=== PATIENT | male | born 1965 | race Caucasian/White ===

== ENCOUNTER 2024-06-22 21:05 | Inpatient (IN) | payer MEDICAID, SELFPAY ==
[2024-06-22 21:17] VITALS: PULSE 96; RESP 16; O2SAT 98; BMI 24.0
[2024-06-22 22:30] VITALS: BP 133/87; PULSE 88; RESP 18; TEMP 36.4; O2SAT 99
--- NOTE | 2024-06-22 22:41 | XR_ITS ---
Examination: CT abdomen with intravenous contrast CT pelvis with intravenous contrast 2-D coronal reconstructions 2-D sagittal reconstructions Date and time of exam:June 23, 2024 at 0102 hours INDICATIONS: Umbilical pain several years worse since last night. CTDI: vol (mGy) 6.80 DLP: (mGycm) 382 Technique: Multiple axial sections of the abdomen and pelvis have been obtained. 64 slice high-resolution scanner used. 3 mm axial sections have been obtained, post intravenous injection 30 cc [id number] 2-D sagittal, coronal reconstructions obtained. Low dose protocols were performed. One or more of the following dose reduction techniques were used; automated exposure control, adjustment of the mA and/or KV according to patient size, use of iterative reconstruction technique. Findings: Axial image 29 suspicious for a 14 mm thrombus in the right ventricle Axial image 24 is suspicious for 4.7 cm thrombus in the left ventricle Moderate right pleural effusion No focal liver or splenic lesions Gallstones No pancreatic mass Perinephric stranding Abdominal aortic calcification no aneurysmal dilatation No bowel obstruction No pericecal inflammatory change 14 mm fat-containing umbilical hernia No diverticulitis Urinary bladder wall thickening up to 4 mm Transverse prostate dimension 3.9 cm Moderate disc narrowing L4-L5, L5-S1 Moderate narrowing hip joints IMPRESSION: Filling defects in the right ventricle and left ventricle consistent with thrombus Moderate right pleural effusion Cholelithiasis Perinephric stranding, consider urinary tract infection Cystitis pattern
--- NOTE | 2024-06-22 22:42 | PD.EDRME ---
Rapid Medical Screening Exam [facility] Arrival date/time: 06/22/24 21:05 58M with history of HTN and drug use presents to ED with gen ab pain. Vital signs: Vital Signs Temperature 97.6 F 06/22/24 22:30 Pulse Rate 88 06/22/24 22:30 Respiratory Rate 18 06/22/24 22:30 Blood Pressure 133/87 H 06/22/24 22:30 Pulse Oximetry (%) 99 06/22/24 22:30 Oxygen Delivery Method Room Air 06/22/24 22:30
[2024-06-22 23:15] LABS: Basophils % (Auto) 0 % (0-2.5); Eosinophils % (Auto) 0 % (0-10); Hematocrit 41.8 % (41.0-53.0); Hemoglobin 13.3 g/dL (13.5-16.0); Immature Granulocytes % (Auto) 1 % (0-0); Immature Granulocytes Auto 0.06 Thou/mm3 (0.00-0.00); Lymphocytes # (Auto) 1.9 Thou/mm3 (1.0-4.8); Lymphocytes % (Auto) 15 % (10-50); Mean Corpuscular HGB Conc 31.8 g/dl (31.0-37.0); Mean Corpuscular Hemoglobin 26.9 pg (25.0-35.0); Mean Corpuscular Volume 85 fL (80-100); Monocytes # (Auto) 1.2 Thou/mm3 (0.0-0.8); Monocytes % (Auto) 9 % (0-12); Neutrophils # (Auto) 9.9 Thou/mm3 (1.8-7.7); Neutrophils % (Auto) 76 % (37-80); Nucleated Red Blood Cell # 0.02 Thou/mm3 (0.00-0.00); Nucleated Red Blood Cell % 0 /100 WBC (0); Platelet Count 265 Thou/mm3 (140-440); RDW Standard Deviation 49.1 fL (35.1-43.9); Red Blood Count 4.94 Miln/mm3 (4.50-5.90); White Blood Count 13.1 Thou/mm3 (3.8-10.6)
[2024-06-22 23:34] LABS: Alanine Aminotransferase 450 U/L (10-49); Albumin/Globulin Ratio 1.2 (1.2-2.2); Alkaline Phosphatase 213 U/L (46-116); Anion Gap 14 (7-16); Aspartate Amino Transferase 255 U/L (0-34); BUN/Creatinine Ratio 18 Ratio (12-20); Blood Urea Nitrogen 27 mg/dL (9-23); Calcium 9.8 mg/dL (8.3-10.6); Calcium (Corrected) 9.8 mg/dL (8.5-10.1); Carbon Dioxide 19.5 mMol/L (20.0-31.0); Chloride 103 mMol/L (98-107); Creatinine (Component) 1.5 mg/dL (0.6-1.3); Estimated Creatinine Clearance 54.8 mL/min (>60); Globulin 3.3 gm/dL (2.3-3.5); Glucose 179 mg/dL (74-106); Lipase 22 U/L (12-53); Osmolality,Calculated 281 (275-295); Potassium 4.4 mMol/L (3.4-5.1); Sodium 136 mMol/L (136-145); Total Protein 7.3 gm/dL (5.7-8.2); eGFR 53 See Note
[2024-06-23] VITALS (86 sets, daily range): BP systolic 20–300; BP diastolic 0–124; PULSE 0–103; RESP 0–67; TEMP 36.4–36.9; O2SAT 10–100; BMI 24.0
--- NOTE | 2024-06-23 00:03 | PC.NURSE ---
CARLOS ZAVALA NOTIFIED OF PATIENT'S PAIN LEVEL OF 4/10, NO NEW ORDERS RECIEVED.
--- NOTE | 2024-06-23 01:36 | PD.EDABDPN ---
ED Abdominal Pain RME/HPI General Chief Complaint: Abdominal Pain Stated complaint: ABDOMINAL PAIN Time seen by provider: 06/23/24 00:52 Arrival date/time: 06/22/24 21:05 RME / HPI RME / HPI narrative: 06/22/24 21:05 58M with history of HTN and drug use presents to ED with gen ab pain. ------ Dr. Wall?s Main ED Evaluation: 58yo male with a history of HTN, polysubstance abuse KEKE presents to the ED for a chief complaint of umbilical pain x years . Patient states it feels like there is a hernia shooting up to my gallbladder . He does not otherwise specify what kind of pain he has nor does he provide any other history. Denies any alcohol use. PSH includes appendectomy. Related Data Previous Rx's ?Medication ?Instructions ?Recorded aluminum-mag hydroxide-simethicone 30 ml PO Q6H PRN Indigestion 06/23/24 200 mg-200 mg-20 mg/5 mL oral susp #3,000 mL (Mag-Al Plus) atorvastatin 80 mg tablet 80 mg PO HS 30 days #30 tabs 06/23/24 pantoprazole 40 mg tablet,delayed 40 mg PO QDAY 14 days #14 tabs 06/23/24 release Allergies Allergy/AdvReac Type Severity Reaction Status Date / Time No Known Allergies Allergy Verified 12/19/20 13:16 Review of Systems Review of Systems Systems Reviewed: All systems reviewed, normal except as documented Narrative Review of Systems: Gen: No fever, no chills, no weight loss EYES: No discharge, no visual changes, no pain HEENT: No ear pain, no congestion, no sore throat PULM: No shortness of breath, no cough, no congestion CV: No chest pain, no dyspnea on exertion, no palpitations GI: No nausea, no vomiting, no diarrhea, + pain, no constipation : No frequency, no urgency, no dysuria Musc/skel: No joint pain, no back pain Skin: No rash. Warm and dry. Psyc: No hallucinations, no depression Heme/Lymph: No easy bleeding or bruising tendencies Neuro: No weakness, no headache Past Medical History Past Medical History CARDIAC: Positive Cardiac Disorders, Myocardial Infarction and Hypertension; Negative Congestive Heart Failure RESPIRATORY: Negative Chronic Obstructive Pulmonary Disease (COPD) or Asthma GENITOURINARY: Negative Renal Disease ENDOCRINE: Negative Diabetes Mellitus Type 1 or Diabetes Mellitus Type 2 HEMATOLOGIC: Negative Sickle Cell Disease Social History SMOKING STATUS: Never smoker ED Exam Narrative Physical exam: GENERAL APPEARANCE: alert and oriented x 4, well-developed, well-nourished, no acute distress VITALS: All vitals were reviewed and the pulse ox is 100% on room air, which is normal according to my interpretation. HEENT: Normocephalic, atraumatic; pupils equal, round, reactive to light; EOMI; mucous membranes pink, moist; oropharynx clear NECK: Supple LUNGS: CTABL; no wheezes, no rales, no rhonchi HEART: Regular rate, regular rhythm; normal S1, S2; no murmurs ABDOMEN: non distended; normal BS; soft, no tenderness, no RUQ tenderness on deep palpation, no guarding, no rebound; no masses, no organomegaly, no hernia BACK: no CVA tenderness EXTREMITIES: atraumatic; no edema NEUROLOGIC: awake; alert and oriented x4; cranial nerves II-XII grossly intact; no focal sensory or motor deficits PSYCHIATRIC: appropriate mood and affect SKIN: warm, dry, normal color; no rashes Course Quality Measures none Orders Category Date Time Status CT Screening NOW Care 06/22/24 22:41 Completed Insert IV NOW Care 06/22/24 22:41 Completed Miscellaneous Nursing Order NOW Care 06/23/24 01:[address] abdomen pelvis w con Stat Exams 06/22/24 22:41 Completed Alcohol, Blood Medical Stat Lab 06/23/24 01:42 Completed CBC Stat Lab 06/22/24 22:55 Completed CMP [Comprehensive Metabolic Panel] Stat Lab 06/22/24 22:55 Completed Drug Screen,Urine Stat Lab 06/23/24 04:30 Completed INR [Prothrombin Time with INR] Stat Lab 06/23/24 03:03 Completed Lipase Stat Lab 06/22/24 22:55 Completed PTT [Partial Thromboplastin Time] Stat Lab 06/23/24 03:03 Completed Urinalysis, C/S if Indicated Stat Lab 06/23/24 04:30 Completed Acetaminophen Ivpb [Ofirmev Inj] Med 06/23/24 01:44 Discontinued 1,000 mg in 100 ml IV NOW Famotidine Inj [Pepcid Inj] Med 06/23/24 01:43 Discontinued 20 mg IVP X1 ONE Heparin Inj Med 06/23/24 03:05 Discontinued 6,150 unit IV X1 ONE Ondansetron Inj [Zofran Inj] Med 06/23/24 01:44 Discontinued 4 mg IV X1 ONE Ondansetron Inj [Zofran Inj] Med 06/23/24 01:44 Discontinued 4 mg IV X1 ONE Vital Signs Vital signs: Vital Signs Temperature 97.6 F 06/22/24 22:30 Pulse Rate 88 06/22/24 22:30 Respiratory Rate 18 06/22/24 22:30 Blood Pressure 133/87 H 06/22/24 22:30 Pulse Oximetry (%) 99 06/22/24 22:30 Oxygen Delivery Method Room Air 06/22/24 22:30 Abdominal Pain MDM MDM Narrative MDM Narrative:: Scribe Attestation: 06/23/24 - Mia Nelson am scribing for and in the presence of Dr. Wall. Patient data External records reviewed:: [facility] previous records (Per chart review, patient was seen here on 11/16/22 for amphetamine abuse.) Clinical information provided by:: patient Social determinants that could affect healthcare access:: substance use (history of methamphetamine abuse) Patient has the following chronic illnesses:: HTN How is presenting disease/condition affected by chronic disease/condition?: uneffected by Evaluation data The following diagnostics were reviewed and interpreted by me:: lab results and radiology exam(s) Lab and/or radiology exams considered but not ordered:: none Interpretation Summary: WBC count is slightly elevated at 13.1, BUN is 27, Creatinine is slightly elevated at 1.5, LFTs are elevated, Lipase is normal, according to my interpretation. ---- Telerad Preliminary Report Draft Patient: LETTY ALSTON [facility]. Record#: [id number] Birthdate: 1965 Age/Sex: 58 / M Location: [facility] Attending Dr: Ordering Physician: Date of Service: Procedure(s): Accession Number(s): cc: ~ CT scan of the abdomen and pelvis with intravenous contrast (axial sections with sagittal and coronal reformats) June 23, 2024 at 0102 hours Clinical History: Generalized abdominal pain. Comparison: No prior study is available for comparison. Findings: Bibasilar dependent atelectasis is present. There is a moderate right pleural effusion. There is a small left pleural effusion. There is mild cardiomegaly. There is large thrombus in the left ventricle and small thrombi in the right ventricle. There is mild hepatomegaly. The pancreas is atrophic. There is a rim calcified gallbladder calculus, measuring 17 mm without evidence of gallbladder wall thickening or pericholecystic fluid. Perinephric fat stranding bilaterally. Scarring is noted in the kidneys bilaterally. The spleen and adrenals are unremarkable. No evidence of bowel obstruction. The appendix is not visualized; however, there is no evidence of inflammatory process in the right lower quadrant to suggest appendicitis. The urinary bladder is incompletely distended at the time of the examination and appears mildly thick-walled. There is no free fluid or free air. There are atheromatous changes with mural thrombosis of the abdominal aorta and its visceral branches. Degenerative changes are identified in the spine most marked at L4-5 producing moderate spinal canal and severe left neural foraminal narrowing. Impression: 1. Incompletely distended and mildly thick-walled urinary bladder which may represent cystitis. 2. Perinephric fat stranding bilaterally. While nonspecific, the possibility of urinary infection cannot be excluded. Recommend clinical correlation. 3. Cholelithiasis without evidence of acute cholecystitis. 4. Moderate right pleural effusion. Small left pleural effusion. 5. Large thrombus in the left ventricle and small thrombi in the right ventricle. 6. Other findings as described above. Discussion Details: Results verbally communicated to : Dr Wall at 02:37 AM 06/23/2024 Report Electronically Signed By: Félix Holloway 06/23/2024 2:48:39 AM Medications / Prescriptions Medications or Prescriptions considered but not ordered:: none Medication administrations:: Medication Administration History Discontinued Medications Acetaminophen (Acetaminophen 325 Mg Tablet) 650 mg PO Q6H PRN PRN Reason: Fever >100.4 or Pain 1-10 Stop: 07/23/24 04:50 Last Admin: 06/23/24 10:15 Dose: 650 mg Documented By: SWETHA Al Hydrox/Mg Hydrox/Simethicone (Mg Hyd/Al Hyd/Michelle (Maalox Reg) Susp 30 Ml Udc) 30 ml PO Q6H PRN PRN Reason: Indigestion Stop: 07/23/24 04:50 Last Admin: 06/23/24 10:16 Dose: 30 ml Documented By: JT Atorvastatin Calcium (Atorvastatin Calcium 20 Mg Tablet) 80 mg PO HS [facility] Stop: 07/23/24 20:59 Calcium Chloride (Calcium Chloride 10% Inj 10 Ml Syrg) Confirm Administered Dose 10 ml IV .STK-MED ONE Stop: 06/23/24 20:29 Last Admin: 06/23/24 23:35 Dose: Not Given Documented By: LEO Non-Admin Reason: Override Medication Calcium Chloride (Calcium Chloride 10% Inj 10 Ml Syrg) 10 ml IV X1 ONE Stop: 06/23/24 20:46 Last Admin: 06/23/24 20:35 Dose: 10 ml Documented By: RH Clopidogrel Bisulfate (Clopidogrel Bisulfate 75 Mg Tablet) 75 mg PO QDAY ESTEFANY Stop: 07/23/24 08:59 Dextrose (Dextrose 50%-Water Inj 50 Ml Syringe) 25 ml IV Q15MIN PRN PRN Reason: BG 50-70 responsive npo pt Stop: 07/23/24 08:39 Dextrose (Dextrose 50%-Water Inj 50 Ml Syringe) 50 ml IV Q15MIN PRN PRN Reason: BG <50 OR BG <70 & pt unresponsive Stop: 07/23/24 08:39 Last Admin: 06/23/24 20:32 Dose: 50 ml Documented By: LEO Famotidine (Famotidine Inj 10 Mg/Ml Vial 2 Ml) 20 mg IVP X1 ONE Stop: 06/23/24 01:44 Last Admin: 06/23/24 01:54 Dose: 20 mg Documented By: PRADIP Glucagon (Glucagon Inj 1 Mg Vial) 1 mg IM Q15MIN PRN PRN Reason: BG <70, and no IV access Glucagon (Glucagon Inj 1 Mg Vial) 1 mg IM Q15MIN PRN PRN Reason: BG <70, and no IV access Heparin Sodium (Porcine) (Heparin Sod Inj 5000 Unit/Ml Vial) 6,150 unit 80 unit/kg (6150 unit) IV X1 ONE; Protocol Stop: 06/23/24 03:06 Last Admin: 06/23/24 04:44 Dose: 6,150 unit Documented By: PRADIP Co-signed By: Hydromorphone HCl (Hydromorphone Inj 2 Mg/Ml Vial) 1 mg IVP Q4HR PRN PRN Reason: PAIN Stop: 06/28/24 11:40 Last Admin: 06/23/24 13:24 Dose: 1 mg Documented By: SWETHA Hydromorphone HCl (Hydromorphone Inj 2 Mg/Ml Vial) 1 mg IVP X1 ONE Stop: 06/23/24 15:58 Last Admin: 06/23/24 16:01 Dose: 1 mg Documented By: SG Hydromorphone HCl (Hydromorphone Inj 2 Mg/Ml Vial) 2 mg IVP X1 ONE Stop: 06/23/24 16:59 Last Admin: 06/23/24 17:13 Dose: 2 mg Documented By: MR Acetaminophen (Ofirmev Inj) 1,000 mg in 100 mls @ 250 mls/hr IV NOW ONE Stop: 06/23/24 02:07 Last Infusion: 06/23/24 02:17 Dose: Infused Documented By: Admin: 06/23/24 01:53 Dose: 250 mls/hr Documented By: PRADIP Heparin Sodium/Dextrose (Heparin In D5w Ivpb) 25,000 unit in 250 mls @ 13.684 mls/hr IV .[id number] [facility]; Protocol Stop: 07/07/24 04:59 Last Titration: 06/23/24 17:25 Dose: 0 units/kg/hr, 0 mls/hr Documented By: MR Co-signed By: ER Titration: 06/23/24 13:16 Dose: 15 units/kg/hr, 11.403 mls/hr Documented By: SWETHA Co-signed By: AVM Titration: 06/23/24 12:45 Dose: 0 units/kg/hr, 0 mls/hr Documented By: AddieT Co-signed By: AVM Titration: 06/23/24 11:55 Dose: 15 units/kg/hr, 11.403 mls/hr Documented By: JT Co-signed By: AVM Titration: 06/23/24 10:43 Dose: 0 units/kg/hr, 0 mls/hr Documented By: SWETHA Co-signed By: GC Admin: 06/23/24 05:20 Dose: 18 units/kg/hr, 13.684 mls/hr Documented By: PRADIP Co-signed By: KG Magnesium Sulfate (Magnesium Sulfate Ivpb) 2 gm in 50 mls @ 25 mls/hr IV X1 ONE Stop: 06/23/24 10:22 Last Admin: 06/23/24 09:04 Dose: 25 mls/hr Documented By: GM Sodium Chloride (Ns) 1,000 mls @ 999 mls/hr IV .Q1H1M ONE Stop: 06/23/24 14:54 Last Admin: 06/23/24 15:45 Dose: 999 mls/hr Documented By: AVM Piperacillin/Tazobactam/Dextrose (Zosyn) 50 mls @ 12.5 mls/hr IV Q8HR [facility] Stop: 06/30/24 21:59 Piperacillin/Tazobactam/Dextrose (Zosyn) 50 mls @ 100 mls/hr IV X1 ONE Stop: 06/23/24 14:29 Last Admin: 06/23/24 16:19 Dose: 100 mls/hr Documented By: AVM Sodium Chloride (Ns) 1,000 mls @ 999 mls/hr IV .Q1H1M ONE Stop: 06/23/24 14:58 Last Admin: 06/23/24 15:46 Dose: 999 mls/hr Documented By: AVM Sodium Bicarbonate 88.23 meq/ (Dextrose) 588.23 mls @ 100 mls/hr IV .Q5H53M [facility] Stop: 07/23/24 15:51 Last Admin: 06/23/24 17:23 Dose: Not Given Documented By: MR Non-Admin Reason: Discontinued Sodium Bicarbonate 150 meq/ (Dextrose) 1,150 mls @ 100 mls/hr IV .[id number] [facility] Stop: 07/23/24 15:59 Last Admin: 06/23/24 17:23 Dose: Not Given Documented By: MR Non-Admin Reason: Discontinued Vancomycin HCl (Vancomycin/Water 1250 Mg Ivpb) 250 mls @ 120 mls/hr IV QDAY@1400 [facility] Stop: 06/30/24 16:14 Last Infusion: 06/23/24 20:10 Dose: Infused Documented By: Admin: 06/23/24 18:01 Dose: 120 mls/hr Documented By: MR Vasopressin/Sodium Chloride (Vasostrict/Ns Ivpb) Confirm Administered Dose 20 unit in 100 mls @ ud IV .STK-MED ONE Stop: 06/23/24 19:25 Last Admin: 06/23/24 20:24 Dose: Not Given Documented By: CMN Non-Admin Reason: Override Medication Vasopressin/Sodium Chloride (Vasostrict/Ns Ivpb) 20 unit in 100 mls @ 9 mls/hr IV .Q11H7M PRN; Protocol PRN Reason: PER PROTOCOL Stop: 07/23/24 19:38 Last Titration: 06/23/24 21:03 Dose: 0 unit/min, 0 mls/hr Documented By: Admin: 06/23/24 19:24 Dose: 0.03 unit/min, 9 mls/hr Documented By: CMN Lactated Ringer's (Lactated Ringers) 500 mls @ 999 mls/hr IV .Q31M ONE Stop: 06/23/24 20:10 Last Admin: 06/23/24 19:40 Dose: 999 mls/hr Documented By: CMDemetri Albumin Human (Albuminar-25 Ivpb) 25 gm in 100 mls @ 100 mls/hr IV QDAY ESTEFANY Stop: 06/26/24 19:46 Last Infusion: 06/23/24 20:34 Dose: 0 mls/hr Documented By: Admin: 06/23/24 19:40 Dose: 100 mls/hr Documented By: SUZIE Albumin Human (Albuminar-25 Ivpb) Confirm Administered Dose 25 gm in 100 mls @ ud IV .STK-MED ONE Stop: 06/23/24 19:41 Last Admin: 06/23/24 20:24 Dose: Not Given Documented By: CMDemetri Non-Admin Reason: Override Medication Norepinephrine/Dextrose (Levophed In D5w 8mg/250ml) Confirm Administered Dose 8 mg in 250 mls @ ud IV .STK-MED ONE Stop: 06/23/24 20:11 Last Admin: 06/24/24 01:46 Dose: Not Given Documented By: RH Non-Admin Reason: Override Medication Norepinephrine/Dextrose (Levophed In D5w 8mg/250ml) 8 mg in 250 mls @ 7.127 mls/hr IV .Q24H PRN; Protocol PRN Reason: PER PROTOCOL Stop: 07/23/24 20:20 Last Titration: 06/23/24 21:03 Dose: 0 mcg/kg/min, 0 mls/hr Documented By: Titration: 06/23/24 21:00 Dose: 3 mcg/kg/min, 427.624 mls/hr Documented By: Titration: 06/23/24 20:38 Dose: 3 mcg/kg/min, 427.624 mls/hr Documented By: Titration: 06/23/24 20:34 Dose: 2 mcg/kg/min, 285.083 mls/hr Documented By: Titration: 06/23/24 20:32 Dose: 1.5 mcg/kg/min, 213.812 mls/hr Documented By: Titration: 06/23/24 20:27 Dose: 1 mcg/kg/min, 142.541 mls/hr Documented By: Titration: 06/23/24 20:25 Dose: 0.5 mcg/kg/min, 71.271 mls/hr Documented By: Titration: 06/23/24 20:22 Dose: 0.2 mcg/kg/min, 28.508 mls/hr Documented By: Titration: 06/23/24 20:20 Dose: 0.1 mcg/kg/min, 14.254 mls/hr Documented By: Admin: 06/23/24 20:19 Dose: 0.05 mcg/kg/min, 7.127 mls/hr Documented By: RH Calcium Chloride 10 ml/ Sodium (Chloride) 110 mls @ 110 mls/hr IV X1 ONE Stop: 06/23/24 20:36 Insulin Human Lispro (Insulin Lispro (Admelog) 1 Unit/0.01 Ml Unit) 0 unit SC AC ESTEFANY; Protocol Stop: 07/23/24 11:29 Last Admin: 06/23/24 12:00 Dose: Not Given Documented By: JT Non-Admin Reason: Per protocol. Pt NPO Insulin Human Lispro (Insulin Lispro (Admelog) 1 Unit/0.01 Ml Unit) 0 unit SC AC ESTEFANY; Protocol Stop: 07/23/24 11:29 Insulin Human Lispro (Insulin Lispro (Admelog) 1 Unit/0.01 Ml Unit) 0 unit SC Q6HR ESTEFANY; Protocol Stop: 07/24/24 00:00 Morphine Sulfate (Morphine Sulf Inj 10 Mg/Ml Vial) 2 mg IVP X1 ONE Stop: 06/23/24 11:35 Last Admin: 06/23/24 11:43 Dose: 2 mg Documented By: JT Ondansetron HCl (Ondansetron Inj 2 Mg/Ml Inj 2 Ml) 4 mg IV X1 ONE; Protocol Stop: 06/23/24 01:45 Last Admin: 06/23/24 01:48 Dose: Not Given Documented By: PRADIP Non-Admin Reason: Duplicate Medication on eMAR Ondansetron HCl (Ondansetron Inj 2 Mg/Ml Inj 2 Ml) 4 mg IV X1 ONE; Protocol Stop: 06/23/24 01:45 Last Admin: 06/23/24 01:54 Dose: 4 mg Documented By: PRADIP Ondansetron HCl (Ondansetron Inj 2 Mg/Ml Inj 2 Ml) 4 mg IV Q6H PRN; Protocol PRN Reason: NAUSEA OR VOMITING Stop: 07/23/24 04:50 Pantoprazole Sodium (Pantoprazole 40 Mg Tablet) 40 mg PO QDAY ESTEFANY Stop: 07/23/24 08:59 Last Admin: 06/23/24 09:04 Dose: 40 mg Documented By: DEB Pharmacy Consult (Vancomycin Pharmacy To Dose 1 Each Each) 1 each IV QDAY PRN PRN Reason: PROTOCOL Stop: 07/24/24 08:59 Protamine Sulfate (Protamine Sulfate 10 Mg/Ml 5ml Vial) 30 mg IV X1 ONE Stop: 06/23/24 17:38 Last Admin: 06/23/24 18:01 Dose: 30 mg Documented By: Sodium Bicarbonate (Sodium Bicarb Inj 8.4% 1 Meq/Ml Vial 50 Ml) 50 meq IV X1 ONE Stop: 06/23/24 15:38 Last Admin: 06/23/24 15:51 Dose: 50 meq Documented By: TREE Sodium Bicarbonate (Sodium Bicarb Inj 8.4% 1 Meq/Ml Vial 50 Ml) 50 meq IV X1 ONE Stop: 06/23/24 16:06 Last Admin: 06/23/24 17:14 Dose: Not Given Documented By: Non-Admin Reason: dc per MD GANDHI Sodium Bicarbonate (Sodium Bicarb Inj 8.4% Syr 50 Ml Syringe) 50 ml IV X1 ONE Stop: 06/23/24 20:25 Last Admin: 06/23/24 20:24 Dose: 50 ml Documented By: LEO Sodium Bicarbonate (Sodium Bicarb Inj 8.4% Syr 50 Ml Syringe) Confirm Administered Dose 50 ml IV .STK-MED ONE Stop: 06/23/24 20:17 Last Admin: 06/23/24 20:34 Dose: Not Given Documented By: LEO Non-Admin Reason: Override Medication Sodium Bicarbonate (Sodium Bicarb Inj 8.4% Syr 50 Ml Syringe) Confirm Administered Dose 100 ml IV .[employer] ONE Stop: 06/23/24 20:47 Last Admin: 06/24/24 01:47 Dose: Not Given Documented By: LEO Non-Admin Reason: Code Blue see above Consultations Consultation(s) initiated? (list below): Yes Consultation #1 (Physician, Specialty, Details): Discussed case with [Dr. Dinh, attending Dr. Black] from Hospitalist service regarding admission. Discussed patients ED course, exam findings, labs, and radiology results. The Hospitalist [agrees] to accept the patient for admission. Time: 03:04 Diagnosis Differential diagnosis abdominal pain: acute appendicitis, pancreatitis, small bowel obstruction and other (incarcerated ventral hernia, nonincarcerated ventral hernia, periumbilical hernia) Most likely diagnosis given after review of the tests above:: see below Admission Indicated Admission indicated?: indicated Admission Request Was there a request for admission?: Yes Admission Attestation Admission request attestation: Discussed case with [] from Hospitalist service regarding admission. Discussed patients ED course, exam findings, labs, and radiology results. The Hospitalist [agrees,declines] to accept the patient for admission. Disposition Plan Disposition Plan: Admit Discharge Plan Plan Patient Disposition: Admit Acute Care w/in Hospital Problem List Clinical Impression: Left ventricular thrombus
[2024-06-23] MEDS: ACETAMINOPHEN IVPB 1,000 MG/100 ML VIAL 250 MG IV (01:53)
[2024-06-23] MEDS: FAMOTIDINE INJ 10 MG/ML VIAL 2 ML 20 MG IVP (01:54)
[2024-06-23] MEDS: ONDANSETRON INJ 2 MG/ML INJ 2 ML 4 MG IV (01:54)
[2024-06-23 02:03] LABS: Alcohol, Blood Medical < 3.0 mg/dL (0-10.0)
--- NOTE | 2024-06-23 02:49 | PRELIM_ITS ---
CT scan of the abdomen and pelvis with intravenous contrast (axial sections with sagittal and coronal reformats) June 23, 2024 at 0102 hours Clinical History: Generalized abdominal pain. Comparison: No prior study is available for comparison. Findings: Bibasilar dependent atelectasis is present. There is a moderate right pleural effusion. There is a small left pleural effusion. There is mild cardiomegaly. There is large thrombus in the left ventricle and small thrombi in the right ventricle. There is mild hepatomegaly. The pancreas is atrophic. There is a rim calcified gallbladder calculus, measuring 17 mm without evidence of gallbladder wall thickening or pericholecystic fluid. Perinephric fat stranding bilaterally. Scarring is noted in the kidneys bilaterally. The spleen and adrenals are unremarkable. No evidence of bowel obstruction. The appendix is not visualized; however, there is no evidence of inflammatory process in the right lower quadrant to suggest appendicitis. The urinary bladder is incompletely distended at the time of the examination and appears mildly thick-walled. There is no free fluid or free air. There are atheromatous changes with mural thrombosis of the abdominal aorta and its visceral branches. Degenerative changes are identified in the spine most marked at L4-5 producing moderate spinal canal and severe left neural foraminal narrowing. Impression: 1. Incompletely distended and mildly thick-walled urinary bladder which may represent cystitis. 2. Perinephric fat stranding bilaterally. While nonspecific, the possibility of urinary infection cannot be excluded. Recommend clinical correlation. 3. Cholelithiasis without evidence of acute cholecystitis. 4. Moderate right pleural effusion. Small left pleural effusion. 5. Large thrombus in the left ventricle and small thrombi in the right ventricle. 6. Other findings as described above. Discussion Details: Results verbally communicated to : Dr Wall at 02:37 AM 06/23/2024 Report Electronically Signed By: Félix Holloway 06/23/2024 2:48:39 AM [EST]
[2024-06-23 03:22] LABS: INR 1.4 (0.9-1.3); Partial Thromboplastin Time 25.9 Seconds (22.0-36.0); Prothrombin Time 15.2 Seconds (9.0-12.2)
[2024-06-23] MEDS: HEPARIN SOD INJ 5000 UNIT/ML VIAL 6150 UNIT IV (04:44)
[2024-06-23 04:47] LABS: Collection Type, Urine Clean Catch
--- NOTE | 2024-06-23 04:51 | ECHO_ITS ---
Transthoracic Echo Report Ht (in): 70 Wt (lb): 167 Exam Location: Echo Lab Status: Inpatient Excavating Contractor: Shanel Nguyen Indications: Procedure Performed: BP: 133 / 87 HR: 88 Technical Quality: Very technically difficult study MEASUREMENTS (Male / Female) Normal Values 2D ECHO LV Diastolic Diameter PLAX 5.7 cm 4.2 - 5.9 / 3.9 - 5.3 cm LV Systolic Diameter PLAX 4.8 cm IVS Diastolic Thickness 0.8 cm 0.6 - 1.0 / 0.6 - 0.9 cm LVPW Diastolic Thickness 0.9 cm 0.6 - 1.0 / 0.6 - 0.9 cm LV Relative Wall Thickness 0.3 LVOT Diameter 1.9 cm LA Volume Index 22.3 cm?/m? 16 - 28 cm?/m? M-MODE Aortic Root Diameter MM 2.9 cm LA Systolic Diameter MM 3.9 cm LA Ao Ratio MM 1.3 AV Cusp Separation MM 1.9 cm DOPPLER AV Peak Velocity 94.7 cm/s AV Peak Gradient 3.6 mmHg AV Mean Gradient 2.0 mmHg AV Velocity Time Integral 12.9 cm LVOT Peak Velocity 69.5 cm/s LVOT Peak Gradient 1.9 mmHg LVOT Velocity Time Integral 9.3 cm LVOT Cardiac Index 1196.7 cm?/min?m? AV Area Cont Eq vti 2.0 cm? AV Area Cont Eq pk 2.1 cm? MV Area PHT 4.4 cm? MR Peak Velocity 324.5 cm/s MR Peak Gradient 42.1 mmHg Mitral E Point Velocity 84.4 cm/s LV E' Lateral Velocity 11.8 cm/s Mitral E to LV E' Lateral Ratio 7.2 LV E' Septal Velocity 6.0 cm/s Mitral E to LV E' Septal Ratio 14.1 TR Peak Velocity 343.0 cm/s TR Peak Gradient 47.1 mmHg PV Peak Velocity 92.3 cm/s PV Peak Gradient 3.4 mmHg FINDINGS Left Ventricle Normal left ventricular size and wall thickness. Global left ventricular systolic function is severely decreased. The ejection fraction is visually estimated at 20-25%. Horizontal hyperechoic solid thrombosis in the LV apical cap. Right Ventricle The right ventricle is normal in size and systolic function. The estimated right ventricular systolic pressure, 62 mmHg. RAP 15. Left Atrium The left atrium is normal by two-dimensional, color flow and Doppler imaging with no structural abnormalities, no thrombus formation present. Right Atrium The right atrium is normal by two-dimensional imaging, color flow and Doppler imaging with no structural abnormalities, no thrombus formation present. Atrial Septum The interatrial septum appears normal with no evidence of a shunt. Aorta The aorta is normal by two-dimensional, color flow and Doppler interrogation. Mitral Valve The mitral valve is normal by two-dimensional, color flow and Doppler interrogation. There is moderated mitral valve regurgitation, stenosis or prolapse. Aortic Valve The aortic valve is trileaflet and normal by two-dimensional, color flow and Doppler interrogation. There is no significant aortic valve regurgitation. Tricuspid Valve The tricuspid valve is normal by two-dimensional, color flow and Doppler interrogation. There is moderate tricuspid valve regurgitation. Pulmonic Valve The pulmonic valve is not well visualized. There is no significant pulmonic valve regurgitation. Vessels The pulmonary artery appears normal. The inferior vena cava pulmonary and hepatic veins appear normal. Pericardium The pericardium is normal by two-dimensional imaging. There is no significant pericardial effusion. CONCLUSIONS Indication: LV thrombus Normal LV size and wall thickness. Global LV systolic function is severely decreased. Estimated EF 20-25%. Horizontal hyperechoic solid thrombosis in the LV apical cap. RV is normal in size and systolic function. The estimated RV systolic pressure, 62 mmHg. RAP 15. Moderate MR and TR. Tara Mackey (Electronically Signed) Final Date: 24 June 2024 00:36
--- NOTE | 2024-06-23 04:59 | XR_ITS ---
Examination: Abdomen sonogram, Limited Date and time of exam: June 23, 2024 at 0724 hours INDICATIONS: Elevated liver function tests on laboratory examination June 23, 2024 Technique: Real-time fragoso scale transabdominal sonographic images of the upper abdomen obtained. Findings: 21 mm stone in the gallbladder neck Gallbladder wall 0.2 cm no edema Common bile duct 0.3 cm Pancreatic head 2.6 cm Liver 16.6 cm smooth contour no focal liver lesions Mild right pleural fluid Normal hepatopedal portal venous flow Patent IVC IMPRESSION: Cholelithiasis, negative for cholecystitis Normal common bile duct No focal liver lesions
--- NOTE | 2024-06-23 05:00 | ESHP_ITS ---
<Statement entered by Angel Black MD - 06/23/24 13:54> I have discussed and was present for the essential components of the history, physical examination, diagnosis, and treatment plan with the resident. I agree with the patient's care as documented by the resident and amended herein by me. Angel Black MD FACP. Documentation for date of: 06/23/24 HPI History of Present Illness Chief complaint: Periumbilical pain x 3 years, worse today History of present illness: Patient is a 58-year-old male with past medical history of polysubstance abuse with meth and marijuana, CAD, PA s/p stents, and HTN who presented to the ED on 06/22/2024 with episodes of periumbilical pain for 3 years, however episodes got severe enough today he presented to ED. Patient reports the pain as being periumbilical, central, without radiation, feels like there is a hernia. Episodes last about 15-30 minutes and he gets about 2-5 episodes per day. Patient reports that it has caused him to become nauseated and lose appetite. Patient endorses some intermittent chronic diarrhea. Patient states that he has history of PA, s/p stents and is supposed to be on medication but has stopped taking all medications on his own due to feeling like they weren't helping him. Patient reports stents were done by Dr. Shelley in [place] but patient has not followed up with Cardiology for some time. ED Course: -Initial vitals were BP 133/87, HR 88, RR 18, Temp 98.4, O2 99% on room air -Labs significant for WBC 13.1, creatinine 1.5, AST 255, ALT 450, alk phos 213 -Abdomen/pelvis CT with contrast had shown distended urinary bladder, perinephric fat stranding, cholelithiasis without cholecystitis, moderate right pleural effusion, small left pleural effusion, and a large thrombus in the left ventricle with small thrombi in the right ventricle. -In the ED, patient was given Zofran 4 mg IV x1, acetaminophen 1 g IV x1, famotidine 20 mg IV x1 -Patient was admitted for further management of the left ventricle thrombus Review of Systems Review of systems otherwise negative except what is mentioned above. Past Medical History Past Medical History Comments PMH COMMENT: Past Medical History: Polysubstance abuse with meth and marijuana, CAD, PA s/p stents, and HTN Family History: Notable for cardiac disorders and diabetes Surgical History: Cardiac stents Social History: Current every day smoker about 1 pack per day, about 50 pack- year history, denies current alcohol use, endorses occasional drug use including smoked meth and marijuana. Patient states he lives in a house with his girlfriend. Current Medications: Patient currently does not recall medications but states he is supposed to be on heart medications, had poor compliance Allergies: No known drug allergies Exam Vital Signs Temp Pulse Resp BP Pulse Ox O2 Del Method 97.6 F 87 18 110/76 97 Room Air 06/22/24 22:30 06/23/24 04:47 06/23/24 04:31 06/23/24 04:31 06/23/24 04:31 06/23/24 04:31 Narrative Exam Physical Exam General: Awake and in no acute distress. Conversational. HEENT: Normocephalic, atraumatic, mucous membranes moist. Heart: Regular rate and rhythm, no murmurs. Lungs: Wheezing in bilateral lower lung ahn. Abdomen: Soft, nondistended, nontender, positive bowel sounds. ?No guarding or rebound tenderness. Negative Polanco's sign. Neurologic: Alert and oriented x3, no gross neurological deficit, and patient able to move all 4 extremities. Extremities: No edema. Skin: No rash or ecchymoses. Results: Labs 06/23/24 06:06 06/23/24 06:06 Labs: Short CBC 06/22/24 Range/Units 22:55 WBC 13.1 H (3.8-10.6) Thou/mm3 Hgb 13.3 L (13.5-16.0) g/dL Hct 41.8 (41.0-53.0) % Plt Count 265 (140-440) Thou/mm3 BMP 06/22/24 22:55 Sodium 136 Potassium 4.4 Chloride 103 Carbon Dioxide 19.5 L BUN 27 H Creatinine 1.5 H Glucose 179 H Calcium 9.8 Liver Function 06/22/24 Range/Units 22:55 Total Bilirubin 1.0 (0.3-1.2) mg/dL AST 255 H (0-34) U/L ALT 450 H (10-49) U/L Alkaline Phosphatase 213 H (46-116) U/L Albumin 4.0 (3.5-5.0) gm/dL Quality Measures Quality Measures none Medications Home Medications and Allergies Allergies Allergy/AdvReac Type Severity Reaction Status Date / Time No Known Allergies Allergy Verified 12/19/20 13:16 Visit Medications Acetaminophen (Acetaminophen 325 Mg Tablet) 650 mg PO Q6H PRN PRN Reason: Fever >100.4 or Pain 1-10 Stop: 07/23/24 04:50 Al Hydrox/Mg Hydrox/Simethicone (Mg Hyd/Al Hyd/Michelle (Maalox Reg) Susp 30 Ml Udc) 30 ml PO Q6H PRN PRN Reason: Indigestion Stop: 07/23/24 04:50 Atorvastatin Calcium (Atorvastatin Calcium 20 Mg Tablet) 80 mg PO HS ESTEFANY Stop: 07/23/24 20:59 Clopidogrel Bisulfate (Clopidogrel Bisulfate 75 Mg Tablet) 75 mg PO QDAY ESTEFANY Stop: 07/23/24 08:59 Heparin Sodium/Dextrose (Heparin In D5w Ivpb) 25,000 unit in 250 mls @ 13.684 mls/hr IV .[id number] ESTEFANY; Protocol Stop: 07/07/24 04:59 Ondansetron HCl (Ondansetron Inj 2 Mg/Ml Inj 2 Ml) 4 mg IV Q6H PRN; Protocol PRN Reason: NAUSEA OR VOMITING Stop: 07/23/24 04:50 Pantoprazole Sodium (Pantoprazole 40 Mg Tablet) 40 mg PO QDAY [facility] Stop: 07/23/24 08:59 Discontinued Medications Famotidine (Famotidine Inj 10 Mg/Ml Vial 2 Ml) 20 mg IVP X1 ONE Stop: 06/23/24 01:44 Last Admin: 06/23/24 01:54 Dose: 20 mg Heparin Sodium (Porcine) (Heparin Sod Inj 5000 Unit/Ml Vial) 6,150 unit 80 unit/kg (6150 unit) IV X1 ONE; Protocol Stop: 06/23/24 03:06 Last Admin: 06/23/24 04:44 Dose: 6,150 unit Acetaminophen (Ofirmev Inj) 1,000 mg in 100 mls @ 250 mls/hr IV NOW ONE Stop: 06/23/24 02:07 Last Infusion: 06/23/24 02:17 Dose: Infused Ondansetron HCl (Ondansetron Inj 2 Mg/Ml Inj 2 Ml) 4 mg IV X1 ONE; Protocol Stop: 06/23/24 01:45 Last Admin: 06/23/24 01:48 Dose: Not Given Ondansetron HCl (Ondansetron Inj 2 Mg/Ml Inj 2 Ml) 4 mg IV X1 ONE; Protocol Stop: 06/23/24 01:45 Last Admin: 06/23/24 01:54 Dose: 4 mg Assessment & Plan Plan 58-year-old male with past medical history of polysubstance abuse with meth and marijuana, CAD, PA s/p stents, and HTN who presented to the ED on 06/22/2024 with episodes of periumbilical pain for 3 years with worsening episodes prompting ED visit, found to have left ventricle thrombus on imaging and admitted for further management. #Large left ventricle thrombus #Multiple small right ventricle thrombi Patient initially presented with acute on chronic abdominal pain, found to have left ventricle thrombus on the CT abdo/pelvis with contrast. -Given heparin bolus in ED -Started on heparin drip -Echo ordered -Cardiology Dr. Anderson consulted -Troponin ordered #Periumbilical abdominal pain Unknown etiology at this time, patient presents with acute on chronic symptoms x years. Differentials may include mesenteric ischemia given the history of CAD, thrombus present, CT abd/pelv with contrast thus far did not show particular occlusions. Other etiologies include IBD, IBS, colitis, cholelithiasis, choledocholithiasis. Patient is not septic, CT abd/pelv with con did not find any acute pathology. -Protonix daily -Maalox for symptomatic relief -Outpatient GI follow up #Elevated AST and ALT Patient denies alcohol use. Does endorse meth use. -Ordered liver US -Hepatitis panel #Polysubstance abuse with meth and marijuana #Tobacco use disorder Patient endorses smoking meth, history of marijuana use. -Counseled on cessation of substance use #History of CAD and PA s/p stents #History of HTN -Restart prior medications pending med rec DVT prophylaxis: Heparin drip GI prophylaxis: Pantoprazole 40 mg PO daily Diet: Cardiac Up: None Lines: Peripheral IV Antibiotics: None CODE STATUS: FULL Reason for hospitalization: Left ventricle thrombus Patient plan of care was discussed with the attending physician, Dr. Black. Debora Dinh, PGY-2
[2024-06-23 05:04] LABS: Amphetamine/Methamp Scrn,U Positive (Negative); Barbiturate Screen,Urine Negative (Negative); Benzodiazepines Screen,Urine Negative (Negative); Benzoylecgonine Screen, Ur Negative (Negative); Fentanyl Screen,Urine Negative (Negative); Opiate Screen,Urine Negative (Negative); THC Screen,Urine Negative (Negative)
[2024-06-23 05:05] LABS: Bilirubin,Urine Negative (Negative); Blood,Urine Negative (Negative); Clarity,Urine Clear (Clear/Hazy); Color,Urine Yellow (Lt Yel-Yel); Culture Indicated,Urine Not Indicated; Glucose, Urine Negative (Negative); Ketones,Urine Negative (Negative); Leukocyte Esterase,Urine Negative (Negative); Nitrite,Urine Negative (Negative); Protein,Urine 1+ (Neg - Trace); RBC,Urine 4 /hpf (0-3); Squamous Epithelial Cell,Urine < 1 /hpf (0-5); WBC,Urine 1 /hpf (0-5)
[2024-06-23 05:08] LABS: Specific Gravity,Urine 1.025 (1.001-1.035)
[2024-06-23] MEDS: Heparin/D5w 25K 250 ML Ivpb 25,000 UNIT/250 ML BAG 13.684 UNIT IV (05:20)
[2024-06-23 06:28] LABS: Basophils # (Auto) 0.1 Thou/mm3 (0.0-0.2); Basophils % (Auto) 1 % (0-2.5); Eosinophils % (Auto) 0 % (0-10); Hematocrit 38.4 % (41.0-53.0); Hemoglobin 12.7 g/dL (13.5-16.0); Immature Granulocytes % (Auto) 0 % (0-0); Immature Granulocytes Auto 0.04 Thou/mm3 (0.00-0.00); Lymphocytes # (Auto) 3.5 Thou/mm3 (1.0-4.8); Lymphocytes % (Auto) 26 % (10-50); Mean Corpuscular HGB Conc 33.1 g/dl (31.0-37.0); Mean Corpuscular Hemoglobin 27.4 pg (25.0-35.0); Mean Corpuscular Volume 83 fL (80-100); Monocytes # (Auto) 1.2 Thou/mm3 (0.0-0.8); Monocytes % (Auto) 9 % (0-12); Neutrophils # (Auto) 8.3 Thou/mm3 (1.8-7.7); Neutrophils % (Auto) 63 % (37-80); Nucleated Red Blood Cell % 0 /100 WBC (0); Platelet Count 231 Thou/mm3 (140-440); RDW Standard Deviation 48.3 fL (35.1-43.9); Red Blood Count 4.64 Miln/mm3 (4.50-5.90); White Blood Count 13.1 Thou/mm3 (3.8-10.6)
[2024-06-23 06:49] LABS: Glucose Estimated Average 137 mg/dL (80-131); Hemoglobin A1C 6.4 % Hgb (4.8-6.0)
[2024-06-23 06:57] LABS: Alanine Aminotransferase 376 U/L (10-49); Albumin, Serum 3.6 gm/dL (3.5-5.0); Albumin/Globulin Ratio 1.2 (1.2-2.2); Alkaline Phosphatase 183 U/L (46-116); Anion Gap 12 (7-16); Aspartate Amino Transferase 173 U/L (0-34); BUN/Creatinine Ratio 19 Ratio (12-20); Bilirubin,Total 0.9 mg/dL (0.3-1.2); Blood Urea Nitrogen 26 mg/dL (9-23); Calcium 9.4 mg/dL (8.3-10.6); Calcium (Corrected) 9.7 mg/dL (8.5-10.1); Carbon Dioxide 19.3 mMol/L (20.0-31.0); Cardiac Risk Estimate 5.1 RATIO (4.0-6.7); Chloride 105 mMol/L (98-107); Cholesterol 142 mg/dL (132-200); Creatinine (Component) 1.4 mg/dL (0.6-1.3); Estimated Creatinine Clearance 58.7 mL/min (>60); Globulin 2.9 gm/dL (2.3-3.5); Glucose 115 mg/dL (74-106); HDL Cholesterol 28 mg/dL (40-60); LDL Cholesterol,Calculated 100 mg/dL (0-130); Magnesium 1.9 mg/dL (1.6-2.6); Osmolality,Calculated 277 (275-295); Phosphorous 5.1 mg/dL (2.4-5.1); Potassium 4.4 mMol/L (3.4-5.1); Sodium 136 mMol/L (136-145); Thyroid Stimulating Hormone 0.81 uIU/mL (0.55-4.78); Total Protein 6.5 gm/dL (5.7-8.2); Triglycerides 69 mg/dL (30-150); eGFR 58 See Note
[2024-06-23 07:07] LABS: Troponin I 1.269 ng/mL (0.0-0.045)
[2024-06-23 08:11] LABS: Hepatitis A Antibody IgM Non Reactive (Non React); Hepatitis B Core Antibody IgM Non Reactive (Non React); Hepatitis B Surface Antigen Non Reactive (Non React); Hepatitis C Antibody Non Reactive (Non React)
--- NOTE | 2024-06-23 08:29 | EKG_ITS ---
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 STUDENT : 1965 Requested By: Josselyn Maier Order Number: [id number] Reading MD: Josselyn Maier Measurements Intervals [place] Rate: 95 P: 63 WA: 145 QRS: -76 QRSD: 84 T: 89 QT: 326 QTc: 412 Interpretive Statements SINUS RHYTHM POSSIBLE LEFT ATRIAL ENLARGEMENT [-0.1mV P WAVE IN V1/V2] MARKED LEFT AXIS DEVIATION [QRS AXIS < -30] ANTEROSEPTAL MYOCARDIAL INFARCTION , OF INDETERMINATE AGE [40+ ms Q WAVE IN V1-V4] Compared to ECG 07/15/2021 00:47:04 Left-axis deviation now present Myocardial infarct finding now present Sinus tachycardia no longer present /store/S0/[id number]/[id number].pdf
[2024-06-23] MEDS: Magnesium Sulfate 2 GM Ivpb 2 GM/50 ML BAG IV (09:04)
[2024-06-23] MEDS: PANTOPRAZOLE 40 MG TABLET PO (09:04)
[2024-06-23 09:22] LABS: Partial Thromboplastin Time > 139.0 Seconds (22.0-36.0)
[2024-06-23 09:32] LABS: HIV (1&2) Antibody Rapid Non-Reactive
[2024-06-23] MEDS: ACETAMINOPHEN 325 MG TABLET 650 MG PO (10:15)
[2024-06-23] MEDS: MG HYD/AL HYD/SIME (Maalox Reg) SUSP 30 ML UDC PO (10:16)
--- NOTE | 2024-06-23 11:16 | PC.CC ---
Pt Slick Odonnell is a 58 yr old male admitted to hospitalist services for left ventricle thrombus and multiple small right thrombi. ASW met with pt at bedside to complete initial assessment. At time of encounter pt is noted to be alert and oriented to person, place and situation. Pt expressed understanding admission order. Pt able to confirm demographic information. Pt is from [address] Per pt he lives in the home with his life partner Meredith Pablo [phone]. At baseline pt reports being independent with ambulation. Pt reports he needs assist with completing his ADLs. Pt states he does not use supplemental O2 in the home, but states that he needs O2. Pt is not on O2 in the ED. Pt reports he is not diabetic and is not on dialysis. Pt is followed by [facility]. Pt states that at time of D/c he will return home, with his life partner providing transport.
--- NOTE | 2024-06-23 11:40 | XR_ITS ---
Examination: CTA abdomen, with intravenous contrast. CTA pelvis, with intravenous contrast. 2-D sagittal and coronal reconstructions. 3-D reconstructions. Date and time of exam: June 23, 2024 1306 hours INDICATIONS: Abdominal pain and distention this week, clinical diagnosis mesenteric ischemia CTDI vol (mgy) 34.6 DLP (MGycm) 505 Technique: Multiple CTA images, 2.0 mm slice thickness, obtained abdomen, pelvis, with the high-resolution 64 slice scanner. 80 cc Isovue-300 is administered intravenously. Sagittal and coronal 2-D reconstructions are obtained. 3-D reconstructions, angiographic images are obtained. 3-D postprocessing, including vascular maximum intensity projections. Low dose protocols were performed. One or more of the following dose reduction techniques were used; automated exposure control, adjustment of the mA and/or KV according to patient size, use of iterative reconstruction technique. Findings: Mild to moderate right pleural fluid Minimal left pleural fluid Hepatomegaly 21 cm No focal liver lesions Cholelithiasis Spleen is not enlarged No pancreatic mass Perinephric stranding with mild renal parenchymal scar formation No abdominal aortic aneurysmal dilatation No edema surrounding small bowel loops No obstruction No free air Urinary bladder intact IMPRESSION: No bowel obstruction No findings diagnostic for ischemic bowel
[2024-06-23] MEDS: MORPHINE SULF INJ 10 MG/ML VIAL 2 MG IVP (11:43)
[2024-06-23 12:19] LABS: Lactate (Lactic Acid) 13.2 mMol/L (0.4-2.0)
[2024-06-23 12:42] LABS: Lipase 25 U/L (12-53)
[2024-06-23 12:51] LABS: Troponin I 1.249 ng/mL (0.0-0.045)
[2024-06-23] MEDS: HYDROmorphone INJ 2 MG/ML VIAL 1 MG IVP ×2 (13:24→16:01)
[2024-06-23 14:52] LABS: Basophils % (Auto) 0 % (0-2.5); Eosinophils % (Auto) 0 % (0-10); Hematocrit 48.1 % (41.0-53.0); Hemoglobin 14.8 g/dL (13.5-16.0); Immature Granulocytes % (Auto) 1 % (0-0); Immature Granulocytes Auto 0.11 Thou/mm3 (0.00-0.00); Lymphocytes # (Auto) 1.2 Thou/mm3 (1.0-4.8); Lymphocytes % (Auto) 7 % (10-50); Mean Corpuscular HGB Conc 30.8 g/dl (31.0-37.0); Mean Corpuscular Hemoglobin 27.2 pg (25.0-35.0); Mean Corpuscular Volume 88 fL (80-100); Monocytes # (Auto) 1.3 Thou/mm3 (0.0-0.8); Monocytes % (Auto) 8 % (0-12); Neutrophils # (Auto) 14.5 Thou/mm3 (1.8-7.7); Neutrophils % (Auto) 85 % (37-80); Nucleated Red Blood Cell # 0.03 Thou/mm3 (0.00-0.00); Nucleated Red Blood Cell % 0 /100 WBC (0); Platelet Count 271 Thou/mm3 (140-440); RDW Standard Deviation 53.4 fL (35.1-43.9); Red Blood Count 5.45 Miln/mm3 (4.50-5.90); White Blood Count 17.1 Thou/mm3 (3.8-10.6)
--- NOTE | 2024-06-23 15:10 | PD.RESPRO ---
Documentation for date of: 06/23/24 Subjective Subjective Interval history: Patient admitted overnight. No overnight events reported for patient. Patient has a limited past medical history of high blood pressure and recent CAD status post stents approximately 4 months ago at [facility] started on Plavix (stopped plavix himselft recently). Approximately 21-qwqi-gcku history. Patient stated he recently had umbilical pain that was 10/10 at home but resolved in the ER. Patient stated that pain at the umblical site does not radiate. Decreased oral intake. Decreased bowel movements, has not had a bowel movement approximately 2 days. Denied melena or hematochezia in stoo denied recent weight loss. Also complaining of epigastric pain, not associated with food. Patient stated pain has been dull and comes and goes. Epigastric pain 5 out of 10. Radiates across his diaphragm region. Does not move towards the back. Denied chest pain. Denied pyrexia. Denied chills. Denied recent sick contacts. Denied traumatic falls. Denied open lesions. Denied meth use despite having a positive U tox. Denied ingestion of other substances or medications. *Rapid response called for patient at approximately 3:44 PM for increased mottling and worsening metabolic acidosis. Exam Vital Signs Temp Pulse Resp BP Pulse Ox O2 Del Method 98.1 F 103 H 18 162/124 H 94 L Room Air 06/23/24 12:00 06/23/24 12:00 06/23/24 12:00 06/23/24 12:00 06/23/24 12:06/23/24 12:00 Narrative Exam General Appearance: Alert & Oriented X3, well-nourished male who is lying in bed in mild distress. HEENT: Skull symmetrical and atraumatic. Conjunctivae pink and moist. Pupils equal, round, reactive to light and accommodation (PERRL). External ear without lesion or discharge. Straight, nares patient, mucosa pink, no discharge. Cardio: Normal Rate and Rhythm with S1 and S2 heart sounds. Possible murmur appreciated but difficult to appreciate given body habits. No bruits on carotid auscultation. No peripheral edema or cyanosis. No JVD noted. Lungs: Symmetric with good expansion. Chest and back non-tender. Breath sounds vesicular with mild crackles Abdomen: Diffuse tenderness, Non-distended, Normal Reactive Bowel Sounds, umbilical hernia reducible Neuro: Alert, cooperative, oriented to person, place, and time. Speech clear. CN grossly intact. Upper motor strength 5/5 and Lower motor strength 5/5. Sensation intact. Objective Labs 06/23/24 20:53 06/23/24 20:53 Labs: Laboratory Results - last 24 hr 06/22/24 06/23/24 06/23/24 22:55 04:30 06:06 WBC 13.1 H 13.1 H RBC 4.94 4.64 Hgb 13.3 L 12.7 L Hct 41.8 38.4 L MCV 85 83 MCH 26.9 27.4 MCHC 31.8 33.1 RDW Std Deviation 49.1 H 48.3 H Plt Count 265 231 D Neut % (Auto) 76 63 Lymph % (Auto) 15 26 [place] % (Auto) 9 9 Eos % (Auto) 0 0 Baso % (Auto) 0 1 Neut # (Auto) 9.9 H 8.3 H Lymph # (Auto) 1.9 3.5 [place]erry # (Auto) 1.2 H 1.2 H Eos # (Auto) 0.0 0.0 Baso # (Auto) 0.0 0.1 Immature Gran # (Auto) 0.06 H 0.04 H Absolute Nucleated RBC 0.02 H 0.00 Immature Gran % 1 H 0 Nucleated RBC % 0 0 PT 15.2 H INR 1.4 H APTT 25.9 > 139.0 H* D Sodium 136 136 Potassium 4.4 4.4 Chloride 103 105 Carbon Dioxide 19.5 L 19.3 L Anion Gap 14 12 BUN 27 H 26 H Creatinine 1.5 H 1.4 H Estim Creat Clear Calc 54.8 L 58.7 L eGFR 53 L 58 L BUN/Creatinine Ratio 18 19 Glucose 179 H [address] Glu mg/dL 137 H Hemoglobin A1c 6.4 H Calculated Osmolality 281 277 Lactic Acid Calcium 9.8 9.4 Corrected Calcium 9.8 9.7 Phosphorus 5.1 Magnesium 1.9 Total Bilirubin 1.0 0.9 AST 255 H 173 H ALT 450 H 376 H Alkaline Phosphatase 213 H 183 H D Troponin I 1.269 H* Total Protein 7.3 6.5 Albumin 4.0 3.6 Globulin 3.3 2.9 Albumin/Globulin Ratio 1.2 1.2 Triglycerides 69 Cholesterol 142 LDL Cholesterol, Calc 100 HDL Cholesterol 28 L Cholesterol/HDL Ratio 5.1 Lipase 22 TSH 0.81 Ur Collection Type Clean Catch Urine Color Yellow Urine Clarity Clear Urine pH 6.0 Ur Specific [place] 1.025 Urine Protein 1+ A Urine Glucose (UA) Negative Urine Ketones Negative Urine Blood Negative Urine Nitrite Negative Urine Bilirubin Negative Urine Urobilinogen (Auto) 4.0 Ur Leukocyte Esterase Negative Urine RBC 4 H Urine WBC 1 Ur Squamous Epith Cells < 1 Urine Bacteria None Ur Culture Indicated? Not Indicated Urine Opiates Screen Negative Urine Fentanyl Screen Negative Ur Barbiturates Screen Negative U Amphetamin/Meth Scrn Positive A U Benzodiazepines Scrn Negative U Cocaine Metab Screen Negative U Marijuana (THC) Screen Negative Ethyl Alcohol < 3.0 Hepatitis A IgM Ab Non Reactive Hep Bs Antigen Non Reactive Hep B Core IgM Ab Non Reactive Hepatitis C Antibody Non Reactive HIV 1&2 Antibody Rapid 06/23/24 06/23/24 06/23/24 07:20 12:06 14:41 WBC 17.1 H RBC 5.45 Hgb 14.8 D Hct 48.1 MCV 88 MCH 27.2 MCHC 30.8 L RDW Std Deviation 53.4 H Plt Count 271 D Neut % (Auto) 85 H Lymph % (Auto) 7 L [place] % (Auto) 8 Eos % (Auto) 0 Baso % (Auto) 0 Neut # (Auto) 14.5 H Lymph # (Auto) 1.2 [place] # (Auto) 1.3 H Eos # (Auto) 0.0 Baso # (Auto) 0.0 Immature Gran # (Auto) 0.11 H Absolute Nucleated RBC 0.03 H Immature Gran % 1 H Nucleated RBC % 0 PT INR APTT Sodium Potassium Chloride Carbon Dioxide Anion Gap BUN Creatinine Estim Creat Clear Calc eGFR BUN/Creatinine Ratio Glucose Estimated Ave Glu mg/dL Hemoglobin A1c Calculated Osmolality Lactic Acid 13.2 H* 16.0 H* Calcium Corrected Calcium Phosphorus Magnesium Total Bilirubin AST ALT Alkaline Phosphatase Troponin I 1.249 H* Total Protein Albumin Globulin Albumin/Globulin Ratio Triglycerides Cholesterol LDL Cholesterol, Calc HDL Cholesterol Cholesterol/HDL Ratio Lipase 25 TSH Ur Collection Type Urine Color Urine Clarity Urine pH Ur Specific [place] Urine Protein Urine Glucose (UA) Urine Ketones Urine Blood Urine Nitrite Urine Bilirubin Urine Urobilinogen (Auto) Ur Leukocyte Esterase Urine RBC Urine WBC Ur Squamous Epith Cells Urine Bacteria Ur Culture Indicated? Urine Opiates Screen Urine Fentanyl Screen Ur Barbiturates Screen U Amphetamin/Meth Scrn U Benzodiazepines Scrn U Cocaine Metab Screen U Marijuana (THC) Screen Ethyl Alcohol Hepatitis A IgM Ab Hep Bs Antigen Hep B Core IgM Ab Hepatitis C Antibody HIV 1&2 Antibody Rapid Non-Reactive Quality Measures Quality Measures none Assessment & Plan Assessment Current Active Medications: Generic Name Dose Route Start Last Admin Trade Name Freq PRN Reason Stop Dose Admin Acetaminophen 650 mg 06/23/24 04:51 06/23/24 10:15 Acetaminophen 325 Mg Tablet PO 07/23/24 04:50 650 mg Q6H PRN Administration Fever >100.4 or Pain 1-10 Al Hydrox/Mg Hydrox/Simethicone 30 ml 06/23/24 04:51 06/23/24 10:16 Mg Hyd/Al Hyd/Michelle (Maalox Reg) Susp 30 Ml Udc PO 07/23/24 04:50 30 ml Q6H PRN Administration Indigestion Dextrose 25 ml 06/23/24 08:40 Dextrose 50%-Water Inj 50 Ml Syringe IV 07/23/24 08:39 Q15MIN PRN BG 50-70 responsive npo pt Dextrose 50 ml 06/23/24 08:40 Dextrose 50%-Water Inj 50 Ml Syringe IV 07/23/24 08:39 Q15MIN PRN BG <50 OR BG <70 & pt unresponsive Glucagon 1 mg 06/23/24 14:39 Glucagon Inj 1 Mg Vial IM Q15MIN PRN BG <70, and no IV access Hydromorphone HCl 1 mg 06/23/24 11:41 06/23/24 13:24 Hydromorphone Inj 2 Mg/Ml Vial IVP 06/28/24 11:40 1 mg Q4HR PRN Administration PAIN Heparin Sodium/Dextrose 25,000 unit in 250 mls @ 13.684 mls/hr 06/23/24 05:00 06/23/24 10:43 Heparin In D5w Ivpb IV 07/07/24 04:59 0 units/kg/hr .[id number] ESTEFANY 0 mls/hr Titration Protocol 18 UNITS/KG/HR Piperacillin/Tazobactam/Dextrose 50 mls @ 12.5 mls/hr 06/23/24 22:00 Zosyn IV 06/30/24 21:59 Q8HR ESTEFANY Insulin Human Lispro 0 unit 06/23/24 14:39 Insulin Lispro (Admelog) 1 Unit/0.01 Ml Unit SC 07/23/24 11:29 AC [facility] Protocol Ondansetron HCl 4 mg 06/23/24 04:51 Ondansetron Inj 2 Mg/Ml Inj 2 Ml IV 07/23/24 04:50 Q6H PRN NAUSEA OR VOMITING Protocol Pantoprazole Sodium 40 mg 06/23/24 09:00 06/23/24 09:04 Pantoprazole 40 Mg Tablet PO 07/23/24 08:59 40 mg QDAY [facility] Administration Plan Patient is a 58 year old male with a past medical history of Hypertension, CAD s/p stents 4 months ago who was admitted for large left ventrile thrombus and intractable abdominal pain. 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 Given past medical history of illicit drug use, endocarditis can not be ruled out vs right heart failure secondary to clot, consider embolization elevated troponins likely secondary NSTEMI given no ST elevation on admission type I versus type II. Plan: -Started on heparin drip -Echo Stat Pending -Troponin repeat -Cardiology Dr. Anderson consulted #Leukocytosis Elevated WBC count of 13.3. Endocarditis must be considered given past medical history of illicit drug use and large thrombus noted on CT abdomen pelvis, possible [place] lesions noted on hands. DDx less likely secondary to pneumonia as as no rhonchi were noted on physical exam and denied cough or sick contacts versus GI infection less likely secondary to UA. Diagnostics CT abdomen pelvis showed right pleural effusion UA positive protein, positive urobilinogen, positive RBCs, no bacteria noted. Plan Blood culture Flu and COVID swab Echo Zosyn and vancomycin added (06/05/2024) #Metabolic acidosis, anion gap Mild metabolic acidosis during morning admission, bicarb 19.3. Lactic acidosis ordered. Anion gap of 12 which is borderline between none anion gap versus anion gap. Given the large thrombus consider lactic acidosis secondary to ischemia versus uremia given elevated BUN. Less likely secondary to DKA as glucose within normal range and ketones normal. Pending salicylates. Less likely secondary to normal anion gap given there is no history of diarrhea spironolactone use or recent saline infusion. Renal tubular acidosis can always be considered. Plan Lactic acid Consider IV fluids but patient is able to eat and drink at the moment. #GUCCI Patient's previous creatinine on file from 2021 1.1, in the ER creatinine 1.5 that is representing a change greater than 0.3. Given BUN and creatinine ratio of 19 consider prerenal secondary to hypovolemia. DDx: Intrinsic renal failure cannot be ruled out as patient is borderline prerenal prerenal versus intrinsic and RBCs noted on UA. CKD cannot be ruled out as GFR 53 with admission and 58 with morning labs and history of hypertension. Plan -Avoid nephrotoxins -Renally dose medication -Consider IV fluids, if there is no improvement. #Intractable abdominal pain #Periumbilical abdominal pain Unknown etiology at this time, patient presents with acute on chronic symptoms x years. Differentials may include mesenteric ischemia given the history of CAD, thrombus present, CT abd/pelv with contrast thus far did not show particular occlusions. Other etiologies include IBD, IBS, colitis, cholelithiasis, choledocholithiasis. Patient is not septic, CT abd/pelv with con did not find any acute pathology. Plan -HIDA -Protonix daily -Maalox for symptomatic relief Item -General Surgery consulted, appreciate recommendations #Transaminitis Patient denied alcohol use disorder. Denied illicit drug use but tested positive for meth on U tox. Denied IV use. Consider MASH given patient's body habitus versus alcohol use disorder versus infectious cause versus ischemic vs acute cholangitis Diagnostics: HIV negative, hepatitis negative Ultrasound liver: 22 mm stone in gallbladder neck, gallbladder wall 0.2 cm no edema, common bile duct 0.3 cm, pancreatitis head 2.6, liver smooth contour no focal liver lesions. Cholelithiasis Pending, negative cholecystitis. Plan -HIDA #Polysubstance abuse with meth and marijuana #Tobacco use disorder Patient endorses smoking meth, history of marijuana use. -Counseled on cessation of substance use #History of CAD and [place] s/p stents #History of HTN -Restart prior medications pending med rec Plan -Atorvastatin 80 mg p.o. at bedtime, consider D/C if AST's and ALTs worsen -Plavix on hold given heparin drip DVT prophylaxis: Heparin drip GI prophylaxis: Pantoprazole 40 mg PO daily Diet: Cardiac Up: None Lines: Peripheral IV Antibiotics: None CODE STATUS: FULL - The patient's plan was discussed with attending Dr. Dr. Reyes and senior residents Dr. Denys Maier MD PGY1 Internal Medicine Attending Provider Attestation/Addendum I have examined the patient, reviewed labs and imaging findings, discussed the case with the resident(s), and reviewed entered orders. I agree with the plan of care as outlined in this note, with these additional summaries/recommendations: Patient seen and examined at bedside this morning complaining of severe abdominal pain in the periumbilical region with pain out of proportion to exam. Obtained stat lactic acid and CT angio with concern for mesenteric ischemia versus alternative intra-abdominal pathology. Lactic acid returned at 13 and patient given fluid boluses and added Zosyn for coverage, already on heparin drip. Lactate continued to rise to 16 so consulted ICU for further management of worsening lactic acidosis with unclear etiology. Quintin Reyes MD
[2024-06-23 15:16] LABS: Reflex Lactate? Y
[2024-06-23 15:27] LABS: Alanine Aminotransferase 424 U/L (10-49); Albumin, Serum 4.2 gm/dL (3.5-5.0); Albumin/Globulin Ratio 1.4 (1.2-2.2); Alkaline Phosphatase 223 U/L (46-116); Anion Gap 27 (7-16); Aspartate Amino Transferase 193 U/L (0-34); BUN/Creatinine Ratio 14 Ratio (12-20); Bilirubin,Total 1.7 mg/dL (0.3-1.2); Blood Urea Nitrogen 31 mg/dL (9-23); Calcium 9.6 mg/dL (8.3-10.6); Calcium (Corrected) 9.6 mg/dL (8.5-10.1); Chloride 102 mMol/L (98-107); Creatinine (Component) 2.2 mg/dL (0.6-1.3); Estimated Creatinine Clearance 37.3 mL/min (>60); Glucose 137 mg/dL (74-106); Osmolality,Calculated 286 (275-295); Potassium 4.4 mMol/L (3.4-5.1); Salicylate < 3.0 mg/dL; Sodium 139 mMol/L (136-145); Total Protein 7.2 gm/dL (5.7-8.2); eGFR 34 See Note
[2024-06-23 15:29] LABS: Carbon Dioxide < 10.0 mMol/L (20.0-31.0)
--- NOTE | 2024-06-23 15:39 | ESCONSULT_ITS ---
HPI Consult details Consult date: 06/23/24 Reason for consultation narrative: Patient was seen in consultation because of diffuse abdominal pain radiating. Patient does not have any vomiting. He is complaining of pain around the umbilicus ongoing on the abdomen. Patient denies any such pain in the past he usually does use always have some pain around the umbilicus. No fever chills. He has a history of drug use with that and that he Past Medical History Past Medical History CARDIAC: Positive Cardiac Disorders, Myocardial Infarction and Hypertension; Negative Congestive Heart Failure RESPIRATORY: Negative Chronic Obstructive Pulmonary Disease (COPD) or Asthma GENITOURINARY: Negative Renal Disease ENDOCRINE: Negative Diabetes Mellitus Type 1 or Diabetes Mellitus Type 2 HEMATOLOGIC: Negative Sickle Cell Disease Social History SMOKING STATUS: Never smoker Past Medical History Comments PM COMMENT: Past Medical History: Polysubstance abuse with meth and marijuana, CAD, [place] s/p stents, and HTN Family History: Notable for cardiac disorders and diabetes Surgical History: Cardiac stents Social History: Current every day smoker about 1 pack per day, about 50 pack- year history, denies current alcohol use, endorses occasional drug use including smoked meth and marijuana. Patient states he lives in a house with his girlfriend. Current Medications: Patient currently does not recall medications but states he is supposed to be on heart medications, had poor compliance Allergies: No known drug allergies Meds Home Medications and Allergies Allergies Allergy/AdvReac Type Severity Reaction Status Date / Time No Known Allergies Allergy Verified 12/19/20 13:16 Exam Vital Signs Temp Pulse Resp BP Pulse Ox O2 Del Method 98.1 F 103 H 18 162/124 H 94 L Room Air 06/23/24 12:06/23/24 12:06/23/24 12:06/23/24 12:06/23/24 12:06/23/24 12:00 Narrative Exam Examination revealed 58-year-old male who seems to be because of pain and is moving around. He is 5 feet 10 inches tall weighing 106 pounds. His vital signs are normal except elevated blood pressure pulse rate of 113 Routine Abdominal Exam Comments: Examination of the abdomen showed small umbilical hernia which is reducible. Rest of the abdomen is benign. Does not show any signs of peritonitis. Polanco sign is negative Routine Rectal Exam Comments: Deferred because patient was position and discomfort Routine Exam Comments: Due for Results Results: Laboratory Laboratory Narrative: Patient's laboratory workup is within normal limits. Liver enzymes increasing elevated transaminases. Patient is lactic acid issues with a lactic acid of 16 Results: Imaging Imaging narrative: Ultrasound showed gallstone cholecystitis. The patient had a CTA which is negative CT scan which demonstrated thrombus in the ventricles Assessment & Plan Additional Assessment Additional comments: Impression: Possible sepsis of unknown etiology Rule out cholangitis Rule out cardiac abnormality Hypertension Coronary calyces Plan Plan: Patient is currently wheelchair is not due to cholelithiasis. Gallbladder wall is not thickened and there is no pericholecystic fluid collection. Modalities Polanco sign is negative on palpation. We need to look for the source of his sepsis. I also gave to gastroenterology evaluation to see if we can make anything examining elevation. Thank you very much
[2024-06-23] MEDS: SODIUM CHLORIDE 0.9% 1000 ML 1,000 ML 999 ML IV ×2 (15:45→15:46)
[2024-06-23] MEDS: SODIUM BICARB INJ 8.4% 1 mEq/ML VIAL 50 ML 50 MEQ IV (15:51)
--- NOTE | 2024-06-23 15:53 | EKG_ITS ---
[facility] Test Date: 2024-06-23 Pat Name: LETTY ALSTON [facility] Gender: Male Onsite Health Coach: CHANDRIKA : 1965 Requested By: Quintin Xiong Order Number: [id number] Reading MD: Quintin Xiong Measurements Intervals [place] Rate: 92 P: 47 MO: 140 QRS: -76 QRSD: 96 T: 93 QT: 360 QTc: 446 Interpretive Statements SINUS RHYTHM POSSIBLE LEFT ATRIAL ENLARGEMENT [-0.1mV P WAVE IN V1/V2] PATTERN CONSISTENT WITH PULMONARY DISEASE LEFT ANTERIOR FASCICULAR BLOCK [QRS AXIS <= -45, QR IN I, RS IN II] SEPTAL MYOCARDIAL INFARCTION , OF INDETERMINATE AGE [40+ ms Q WAVE IN V1/V2] INFERIOR MYOCARDIAL INFARCTION , PROBABLY OLD [40+ ms Q WAVE AND/OR ST/T ABNORMALITY IN II/aVF] MODERATE T-WAVE ABNORMALITY, CONSIDER LATERAL ISCHEMIA [-0.1+ mV T WAVE IN I/aVL/V5/V6] Compared to ECG 06/23/2024 15:12:46 Left anterior fascicular block now present T-wave abnormality now present Possible ischemia now present Left-axis deviation no longer present Myocardial infarct finding still present /store/S0/[id number].pdf
--- NOTE | 2024-06-23 15:58 | XR_ITS ---
Examination: AP chest single view TECHNIQUE: AP portable semiupright chest single view Exam date and time: June 23, 2024 1703 hours Comparison November 15, 2022 INDICATIONS: Rapid response today. FINDINGS: Significant CHF Mild to moderate enlargement cardiac contour Prominent vascular congestion with perihilar edema Consider superimposed right lung aspiration pneumonia IMPRESSION: Significant CHF Consider superimposed right lung pneumonia, including aspiration pneumonia
[2024-06-23] MEDS: PIPER/TAZO 3.375 GM 50 ML IV (16:19)
[2024-06-23 16:26] LABS: Base Excess -21 (-3-3); HCO3 9 mEq/L (20-26); Inspired Oxygen, FIO2 100 %; O2 Saturation 65 % (91-98); PCO2 34 mmHg (32.0-48.0)
--- NOTE | 2024-06-23 16:28 | PD.RESEVENT ---
Documentation for date of: 06/23/24 Event Note Event Note: Rapid response called at approximately 3:44 PM Called for increased mottling of lower extremities. Patient was alert and oriented x 3. Protecting airway desatting in the low 80s, increased from nasal cannula to oxy mask to 6 L. Decreased perfusion to lower extremities pedal pulses +1 at best. 2 L bolus already started prior to rapid response. Last morphine 2 mg IV push at at 11:43 AM. Bicarb 50 meq given prior to rapid. Previous lactic Acid 16.0 Intervention: Oxy mask, ABG, EKG, troponin repeat, chest x-ray, added vancomycin. ICU consulted: Concern for distributive versus cardiogenic shock Patient would be at upgraded. - The patient's plan was discussed with attending Dr. Reyes and senior residents Dr. Denys Maier MD PGY1 Internal Medicine
[2024-06-23 16:29] LABS: Allen Test Not Performed; Puncture Site Right Brachial
[2024-06-23 16:30] LABS: PO2 53 mmHg (83-108); pH, Arterial 7.02 (7.35-7.45)
--- NOTE | 2024-06-23 16:36 | PD.INTPROG ---
Documentation for date of: 06/23/24 Subjective Subjective Interval history: This is a 58yo M admitted to the hospital for LV thrombus and acute abd pain. Pt notes that he has had intermittent abd pain for the last few months. On arrival he had a CT done which did not show any acute abd pathology and showed a LV thrombus. A rapid response was called this afternoon for acute abd pain and tachycardia along with a LA of13. During the rapid pt was noted to have mottling of b/l knees with increase in WOB. An abg showed a combined acidosis and the pt was started on a bipap and brought to the ICU. A CTA of abd was obtained earlier in the afternoon and no clear mesenteric ischemic changes noted. pt did not have rebound. He was seen by surgery. Critical Care Note Critical care time (min.): 30 Exam Vital Signs Temp Pulse Resp BP Pulse Ox O2 Del Method FiO2 98.1 F 100 26 H 162/124 H 99 Room Air 40 06/23/24 12:00 06/23/24 16:16 06/23/24 16:16 06/23/24 12:00 06/23/24 16:16 06/23/24 12:00 06/23/24 16:16 Narrative Exam Gen- ill appearing, awake alert and responsive HEENT- NC/AT, mucosa dry, sclera anicteric, face mask in place Chest- coarse with crackles on R, diminished on L, increase in WOB, no chest wall lesions Abd- soft, absent bowel sounds, no rebound at this time Ext- mottling over the knees, feet cool to touch, moves all 4, no clubbing, no edema bedside echo- decrease contractility, hyerdynamic, no pericardial effusion, no D sign, thrombus in LV noted with systems technician Physical Exam Completion Physical Exam Complete?: 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 Labs 06/23/24 20:53 06/23/24 20:53 Labs: Laboratory Results - last 24 hr 06/22/24 06/23/24 06/23/24 22:55 04:30 06:06 WBC 13.1 H 13.1 H RBC 4.94 4.64 Hgb 13.3 L 12.7 L Hct 41.8 38.4 L MCV 85 83 MCH 26.9 27.4 MCHC 31.8 33.1 RDW Std Deviation 49.1 H 48.3 H Plt Count 265 231 D Neut % (Auto) 76 63 Lymph % (Auto) 15 26 [place] % (Auto) 9 9 Eos % (Auto) 0 0 Baso % (Auto) 0 1 Neut # (Auto) 9.9 H 8.3 H Lymph # (Auto) 1.9 3.5 [place] # (Auto) 1.2 H 1.2 H Eos # (Auto) 0.0 0.0 Baso # (Auto) 0.0 0.1 Immature Gran # (Auto) 0.06 H 0.04 H Absolute Nucleated RBC 0.02 H 0.00 Immature Gran % 1 H 0 Nucleated RBC % 0 0 PT 15.2 H INR 1.4 H APTT 25.9 > 139.0 H* D Puncture Site ABG pH ABG pCO2 ABG pO2 ABG HCO3 ABG O2 Saturation ABG Base Excess FiO2 Sodium 136 136 Potassium 4.4 4.4 Chloride 103 105 Carbon Dioxide 19.5 L 19.3 L Anion Gap 14 12 BUN 27 H 26 H Creatinine 1.5 H 1.4 H Estim Creat Clear Calc 54.8 L 58.7 L eGFR 53 L 58 L BUN/Creatinine Ratio 18 19 Glucose 179 H [address] Glu mg/dL 137 H Hemoglobin A1c 6.4 H Calculated Osmolality 281 277 Lactic Acid Calcium 9.8 9.4 Corrected Calcium 9.8 9.7 Phosphorus 5.1 Magnesium 1.9 Total Bilirubin 1.0 0.9 AST 255 H 173 H ALT 450 H 376 H Alkaline Phosphatase 213 H 183 H D Troponin I 1.269 H* Total Protein 7.3 6.5 Albumin 4.0 3.6 Globulin 3.3 2.9 Albumin/Globulin Ratio 1.2 1.2 Triglycerides 69 Cholesterol 142 LDL Cholesterol, Calc 100 HDL Cholesterol 28 L Cholesterol/HDL Ratio 5.1 Lipase 22 TSH 0.81 Ur Collection Type Clean Catch Urine Color Yellow Urine Clarity Clear Urine pH 6.0 Ur Specific [place] 1.025 Urine Protein 1+ A Urine Glucose (UA) Negative Urine Ketones Negative Urine Blood Negative Urine Nitrite Negative Urine Bilirubin Negative Urine Urobilinogen (Auto) 4.0 Ur Leukocyte Esterase Negative Urine RBC 4 H Urine WBC 1 Ur Squamous Epith Cells < 1 Urine Bacteria None Ur Culture Indicated? Not Indicated Salicylates Urine Opiates Screen Negative Urine Fentanyl Screen Negative Ur Barbiturates Screen Negative U Amphetamin/Meth Scrn Positive A U Benzodiazepines Scrn Negative U Cocaine Metab Screen Negative U Marijuana (THC) Screen Negative Ethyl Alcohol < 3.0 Hepatitis A IgM Ab Non Reactive Hep Bs Antigen Non Reactive Hep B Core IgM Ab Non Reactive Hepatitis C Antibody Non Reactive HIV 1&2 Antibody Rapid 06/23/24 06/23/24 06/23/24 07:20 12:06 14:41 WBC 17.1 H RBC 5.45 Hgb 14.8 D Hct 48.1 MCV 88 MCH 27.2 MCHC 30.8 L RDW Std Deviation 53.4 H Plt Count 271 D Neut % (Auto) 85 H Lymph % (Auto) 7 L [place] % (Auto) 8 Eos % (Auto) 0 Baso % (Auto) 0 Neut # (Auto) 14.5 H Lymph # (Auto) 1.2 [place] # (Auto) 1.3 H Eos # (Auto) 0.0 Baso # (Auto) 0.0 Immature Gran # (Auto) 0.11 H Absolute Nucleated RBC 0.03 H Immature Gran % 1 H Nucleated RBC % 0 PT INR APTT Puncture Site ABG pH ABG pCO2 ABG pO2 ABG HCO3 ABG O2 Saturation ABG Base Excess FiO2 Sodium 139 Potassium 4.4 Chloride 102 Carbon Dioxide < 10.0 L* Anion Gap 27 H BUN 31 H Creatinine 2.2 H D Estim Creat Clear Calc 37.3 L eGFR 34 L BUN/Creatinine Ratio 14 [address]ucose [address] Glu mg/dL Hemoglobin A1c Calculated Osmolality 286 Lactic Acid 13.2 H* 16.0 H* Calcium 9.6 Corrected Calcium 9.6 Phosphorus Magnesium Total Bilirubin 1.7 H D AST 193 H ALT 424 H Alkaline Phosphatase 223 H D Troponin I 1.249 H* Total Protein 7.2 Albumin 4.2 D Globulin 3.0 Albumin/Globulin Ratio 1.4 Triglycerides Cholesterol LDL Cholesterol, Calc HDL Cholesterol Cholesterol/HDL Ratio Lipase 25 TSH Ur Collection Type Urine Color Urine Clarity Urine pH Ur Specific [place] Urine Protein Urine Glucose (UA) Urine Ketones Urine Blood Urine Nitrite Urine Bilirubin Urine Urobilinogen (Auto) Ur Leukocyte Esterase Urine RBC Urine WBC Ur Squamous Epith Cells Urine Bacteria Ur Culture Indicated? Salicylates < 3.0 Urine Opiates Screen Urine Fentanyl Screen Ur Barbiturates Screen U Amphetamin/Meth Scrn U Benzodiazepines Scrn U Cocaine Metab Screen U Marijuana (THC) Screen Ethyl Alcohol Hepatitis A IgM Ab Hep Bs Antigen Hep B Core IgM Ab Hepatitis C Antibody HIV 1&2 Antibody Rapid Non-Reactive 06/23/24 16:10 WBC RBC Hgb Hct MCV MCH MCHC RDW Std Deviation Plt Count Neut % (Auto) Lymph % (Auto) [place] % (Auto) Eos % (Auto) Baso % (Auto) Neut # (Auto) Lymph # (Auto) [place] # (Auto) Eos # (Auto) Baso # (Auto) Immature Gran # (Auto) Absolute Nucleated RBC Immature Gran % Nucleated RBC % PT INR APTT Puncture Site Right Brachial ABG pH 7.02 L* ABG pCO2 34 ABG pO2 53 L* ABG HCO3 9 L* ABG O2 Saturation 65 L ABG Base Excess -21 L FiO2 100 Sodium Potassium Chloride Carbon Dioxide Anion Gap BUN Creatinine Estim Creat Clear Calc eGFR BUN/Creatinine Ratio Glucose Estimated Ave Glu mg/dL Hemoglobin A1c Calculated Osmolality Lactic Acid Calcium Corrected Calcium Phosphorus Magnesium Total Bilirubin AST ALT Alkaline Phosphatase Troponin I Total Protein Albumin Globulin Albumin/Globulin Ratio Triglycerides Cholesterol LDL Cholesterol, Calc HDL Cholesterol Cholesterol/HDL Ratio Lipase TSH Ur Collection Type Urine Color Urine Clarity Urine pH Ur Specific [place] Urine Protein Urine Glucose (UA) Urine Ketones Urine Blood Urine Nitrite Urine Bilirubin Urine Urobilinogen (Auto) Ur Leukocyte Esterase Urine RBC Urine WBC Ur Squamous Epith Cells Urine Bacteria Ur Culture Indicated? 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 EKG shows small ST elevation in V3/V4, fu with cardiology - cardiology later at bedside and case discussed - angio from jan 2024 was reviewed as well as old echos from , - thrombus appears old and organized - old EKG had similar changes - no acute cardiac decompensation Chronic LV thrombus- on heparin gtt, formal echo pending Shock- given IVF and started on pressors which are anticipated to worsen his suspected mesenteric ischemia, on IV abx Resp Acute Resp Failure- started on bipap for respiratory acidosis, - bipap adjusted to increase Ve Renal Acidosis- mixed acidosis with an AGMA component as well as a respiratory acidosis. AG appears to be soley at expense of LA GUCCI- pt with no UOP all day but once tenorio was placed 400cc of urine obtained. monitor i/os avoid nephrotoxins GI Transaminitis- liver us neg, check hep panel, ? 2/2 ischemic insult v drug toxicity Abd pain- appears to be pain out of proportion to physical exam with severe Lactic acidosis, d/w surgery and pt will be explored this evening, NPO, NGT to L[facility] Endo Hyperglycemia- SSI, FS q6hr Heme Leukocytosis- 2/2 SIRS, no clear source of infection ID Sepsis- meets criteria with WBC# and HR, on broad spectrum coverage case d/w surgery multiple times as well as anesthesia. It is my opinion that the pt has mesenteric ischemia given his classic clinical presentation as well as increasing LA even though the CTA was reported as negative. pts hemodynamics were initially stable with a good BP. His heparin gtt was stopped and protamine was ordered for reversal. d/w surgery and they were reluctant to take the pt to the OR. I held several discussions with surgery in person and on the phone advocating for surgical intervention while the pt was still stable. I also d/w anesthesia the pts case. Surgery requested a central line and one was placed at 730pm, an A line had been placed prior. Surgery suggested medical management and if pt was alive in the morning they might intervene. Pts condition continued to decline despite medical management as anticipated. A code blue was called and pt at 9pm. Surgery was present at the rapid which was called at 3.40pm and was involved in multiple discussions regarding care d/w ICU, floor team, cardiology, surgery, anesthesia labs, imaging, records reviewed ~ 128ccmin required for eval, exam, review, intervention, discussion and formulation of POC for this critically ill pt who unfortunately despite medical intervention. This time does not include procedures Provider Notation Provider Notation: Although this document has been carefully reviewed, there may still be some phonetic and other typographical errors. These errors are purely grammatical due to imperfections in the software program and should not be construed in any way to compromise the substance of the patient's medical care during this visit. Thank you for the opportunity and privilege in assisting you with this patient's care and management.
[2024-06-23 16:41] LABS: Creatine Kinase 82 U/L (34-171)
--- NOTE | 2024-06-23 16:56 | PC.NURSE ---
On arrival to unit, pt complaining of 10/10 abdominal pain. MD notified of unrelieved abdominal pain. Resident team came to see pt at bedside and ordered morphine for pain. Morphine ineffective for pt pain. Resident team came to bedside again and ordered dilaudid 1mg in addition to CTA and labs. ok'd pausing heparin drip for pt to go for CTA d/t pt having only one IV. Heparin drip restarted upon pt return. Labs resulted and pt lactic was found to have increased to 16 and CO2 critical value (<10). MD notified. Resident team came to bedside again to assess pt and decided an upgrade to tele or higher was the plan. Upon further assessment pt was found to have mottling of the lower extremities and weak femoral pulses, rapid response was called and pt was upgraded to ICU. Pt placed on bipap by RT and transferred to ICU. Report given to Kandi MARTIN on arrival to ICU
[2024-06-23] MEDS: HYDROmorphone INJ 2 MG/ML VIAL IVP (17:13)
[2024-06-23 17:21] LABS: Troponin I 0.883 ng/mL (0.0-0.045)
[2024-06-23 17:37] LABS: Partial Thromboplastin Time 78.9 Seconds (22.0-36.0)
[2024-06-23 17:50] LABS: Reflex Lactate? Y
[2024-06-23] MEDS: VANCOMYCIN/WATER 1250 MG IVPB 250 ML 120 MG IV (18:01)
[2024-06-23] MEDS: PROTAMINE SULFATE 10 MG/ML 5ML VIAL 30 MG IV (18:01)
--- NOTE | 2024-06-23 19:00 | PD.SURPROG ---
Documentation for date of: 06/23/24 Subjective Subjective Narrative: The patient was transferred from the regular floor after rapid response to ICU. Exam Vital Signs Temp Pulse Resp BP Pulse Ox O2 Del Method O2 Flow Rate 98.1 F 87 22 H 120/90 H 99 Oxy Mask 10 06/23/24 18:01 06/23/24 18:01 06/23/24 18:01 06/23/24 18:01 06/23/24 17:30 06/23/24 16:00 06/23/24 16:00 FiO2 40 06/23/24 16:16 Narrative Exam His vital signs are surprisingly stable in spite of marked acidosis. Patient is still complaining of some abdominal pain Routine Abdominal Exam Comments: Examination of the abdomen is still soft with occasional bowel sounds. There are no signs of peritonitis like rebound tenderness or rigidity Results Results: Laboratory Laboratory Narrative: Patient's laboratory workup showed severe acidosis with pH of 7.02 and base excess of -21. His FiO2 is 53. His repeat lactic acid is 16 Assessment & Plan Assessment Additional comments: Impression: Severe lactic acidosis the cause of which is not clear Plan Plan: Since there is no definite etiology for this lactic acidosis we still have to rule out the abdominal source. Therefore I will schedule him for diagnostic laparoscopy and possible exploratory laparotomy tonight. But however I will discuss with anesthesiologist about the risk of surgery. He may or may not be willing to go ahead with anesthesia. I discussed with Dr. Dorota Anderson who felt that thrombus in the cardiac chamber is not a threat and not the cause of lactic acidosis. The anesthesiologist felt that because of the poor ejection fraction and continued acidosis surgery cannot be performed now. He would like to wait and see if his general condition improves.
--- NOTE | 2024-06-23 19:08 | ESPR_ITS ---
Documentation for date of: 06/23/24 PRE-OP ANESTHESIA NOTE: (I started this note at the time of initial patient eval, but completing now on 06/25/24, and this patient has since ; however the case was discussed with the surgeon, the poultry hatchery man and the production support developer at the time of initial eval.) The surgeon first mentioned about this patient while we were together intra-op doing another emergent surgical case, which finished around 18:37, and thus I could not be available til after, and I evaluated him and the chart as soon as possible. He has significant hx including CHF (EF reportedly 20% today) with LV thrombus, h/o multiple CAD with NE s/p stents, h/o drug use (Utox positive for amphetamine/meth), and HTN, has acidosis (first pH reported at 16:10 was 7), not on Bicarb drip on my visit, has h/o abdominal pain and chest pain and p/w abdominal pain this visit. CXR reported pulmonary congestion/edema, possible PNA, and CT and CTA abdomen reports showed negative for bowel ischemia/obstruction/edema/free air. Physical exam by all previous providers including the surgeon reported soft abdomen without distension or rigidity or peritonitis. On my visit in ICU, patient was lethargic, on CPAP/BiPAP, poor Pox waveform on screen, SBP 90 on NIBP cuff, tele showed sinus rhythm with frequent PACs and occasional PVCs (also ICU note reported ST elevation on EKG and he has some elevated Troponins also), abdomen was soft without distension, and an mechanical intern on ICU team was attempting to place A line under Ultrasound, no central line, and RN was at bedside, who reported poor UOP, no bicarb orders, and patient given Protamine earlier after Heparin drip was discontinued (which I was unaware of). Basically, this patient was critically ill, and given h/o multiple CAD and CHF with low EF and severe acidosis, also compromised pulmonary and renal function, had very little reserve to sustain even slight physiologic deterioration that can happen intra-op in such case such has V/Q mismatch, reduced pre-load, increased afterload, surgical bleeding, worsening acidosis, etc, and this could result in immediate cardiac arrest, and after multiple discussions with the surgeon, an acute abdomen was not presented but rather suspicion of bowel ischemia and surgery as rule out procedure, thus it was collectively decided not to proceed with the surgery at that time, but I recommended ongoing patient evaluation in ICU, especially abdominal evaluation, and I was available being on-call but did not receive further contact, and retrospective chart review shows the patient deteriorated very soon afterwards and in ICU. Félix Ramirez MD Anesthesia Progress Note Progress Note Most recent Vital Signs: Last Vital Signs Temp 98.1 F 06/23/24 18:01 Pulse 87 06/23/24 18:01 Resp 22 H 06/23/24 18:01 BP 120/90 H 06/23/24 18:01 Pulse Ox 99 06/23/24 17:30 O2 Del Method Oxy Mask 06/23/24 16:00 O2 Flow Rate 10 06/23/24 16:00 FiO2 40 06/23/24 16:16
--- NOTE | 2024-06-23 19:17 | PD.RESPROC ---
Procedures Procedure Date / Time 06/23/241916 Arterial Line Indication(s): frequent arterial line sampling Informed consent obtained: from patient Time out done, and the following verified: correct patient, side and site, procedure and patient position Size (Gauge): 20 Technique used: direct puncture technique Post-Procedure: dry sterile dressing placed Patient tolerated procedure: well and no complications EBL(ml): 0 Complications: none Site: right
[2024-06-23] MEDS: VASOPRESSIN IN NS IVPB 20 UNIT/100 ML BAG 9 UNIT IV (19:24)
--- NOTE | 2024-06-23 19:27 | ESCONSULT_ITS ---
<Statement entered by Justice Russell DO - 06/23/24 21:46> Senior attestation: Patient was examined and case was reviewed with team including attending physician. Note reviewed, I agree with most of its contents and agree with the patient's care. In summary, patient is a 58 year old male with history of CAD, AR s/p stents, hypertension, and polysubstance use who presented to the ED with concerns of periumbilical pain for 3 years, was admitted to medical floors for further evaluation and management abdominal pain and left ventricle thrombus. On 06/23, following a rapid response for worsening pain in setting of elevated lactic acid ~16, ICU team was consulted. Lab work from today revealed worsening bicarbonate levels now <10.0, creatinine 2.2 from 1.4, increased anion gap to 27, lactic acid from 13.2 to 16.0. ABG revealed results 7.02/32/53/9. Given these findings, patient was upgraded to ICU floors for further management. General surgeon Dr. Bloom consulted, imaging reviewed and suspicion of mesenteric ischemia discussed. After examination bedside, general surgery agreed to proceed with exploratory laparoscopy, will reach out to Anesthesiology team with goal of operating tonight. Cps Team Lead Dr Anderson contacted, does not advise heparin drip at this time, low suspicion of AR contributing to patient's symptoms and lactic acidosis. Advising stopping heparin. Heparin stopped and protamine sulfate given x1. Arterial line placed, will follow up with repeat ABG and lab work this evening for patient's high anion gap metabolic acidosis with mixed respiratory acidosis, will avoid bicarbonate drip for now but consider amp bicarb pushes if pH < 7.00. Will continue broad spectrum Vancomycin/zosyn, unclear infectious source at this time but may be gastrointestinal in origin, blood and sputum cultures pending. Have received consent from patient for dialysis catheter insertion, patient may require hemodialysis for ARF in future, will hold on nephrology consult for now. Justice Russell DO PGY-3 HPI Data of Consult Requesting Physician: Angel Black MD Admitting Provider: Angel Black MD Attending Provider: Angel Black MD Primary Care Provider: Myke Duff PA-C Consult Narrative Reason for consult: low MAP, AHRF History of present illness: Slick Odonnell is 58 yr male with PMH of polysubstance abuse with meth and marijuana, CAD, AR s/p stents, and HTN who presented to the ED on 06/22/2024 with episodes of periumbilical pain for 3 years, however episodes worsened in severity pass few days. He denied any vomiting, diarrhea. Pain is remitting with no alleveating factors. Eating does not make it worse. Pain is 10/10, out of proportion to exam. Abdomen is non distended, soft, mild pain to plapation, no ridgidity. Due to worsening lactic acidosis, mottling appearance on b/L knees, desatting ICU was consulted. Bedside echo was done negative for pericardial effusion, dyskinetic contractility, and LV thrombus. Cardiology was also consulted due to elevated trops, ventricle thrombi, and mild ST elevation in V3, V4 leads. Stated that underlying etiology less likely due to cardiac cause. Surgery Dr. Bloom was consulted for possible lap due to pts worsening LA now at 16--Considering possible bowel ischemia. Will stop Heparin drip, give protamine, and repeat coag pannel. He was started on BiPAP after ABGs showed metabolic acidosis ph 7.02, pCO2 34, bicarb 9. AG was 27, BUN 31, Cr 2.2, AST 193, ALT 424, ALP 223. On empiric antibiotics vanc/zosyn due to leukocytosis 17 and RR 30s. At this time source is undetermined. cc:: cc: Angel Black MD Exam Vital Signs Temp Pulse Resp BP Pulse Ox O2 Del Method O2 Flow Rate 98.1 F 87 22 H 120/90 H 99 Oxy Mask 10 06/23/24 18:01 06/23/24 18:06/23/24 18:06/23/24 18:06/23/24 17:30 06/23/24 16:00 06/23/24 16:00 FiO2 40 06/23/24 16:16 Narrative Exam General: Alert and oriented x3. Acute distress from pain HEENT: Atraumatic, normocephalic. No JVD noted. Mucosa moist. Pupils are equal and reactive to light bilaterally Cardiovascular: Normal S1 and S2. Regular rate and rhythm. No pitting edema Respiratory: Lungs are clear to auscultation bilaterally. No wheezing or crackles heard. Abdomen: Soft, nontender, not distended, normal bowel sounds, no ridgidity Skin: LE cool to touch, mottled knees B/L, no lesions Musculoskeletal: No gross injuries. Able to move all 4 extremities. Neuro: Alert and oriented x3. Grossly intact Results Labs 06/23/24 14:41 06/23/24 14:41 Labs: Short CBC 06/22/24 06/23/24 06/23/24 Range/Units 22:55 06:06 14:41 WBC 13.1 H 13.1 H 17.1 H (3.8-10.6) Thou/mm3 Hgb 13.3 L 12.7 L 14.8 D (13.5-16.0) g/dL Hct 41.8 38.4 L 48.1 (41.0-53.0) % Plt Count 265 231 D 271 D (140-440) Thou/mm3 BMP 06/22/24 06/23/24 06/23/24 22:55 06:06 14:41 Sodium 136 136 139 Potassium 4.4 4.4 4.4 Chloride 103 105 102 Carbon Dioxide 19.5 L 19.3 L < 10.0 L* BUN 27 H 26 H 31 H Creatinine 1.5 H 1.4 H 2.2 H D Glucose 179 H 115 H D 137 H Calcium 9.8 9.4 9.6 Cardiac Enzymes 06/23/24 06/23/24 06/23/24 Range/Units 06:06 12:06 14:41 Total Creatine Kinase 82 (34-171) U/L Troponin I 1.269 H* 1.249 H* (0.0-0.045) ng/mL 06/23/24 Range/Units 16:04 Total Creatine Kinase (34-171) U/L Troponin I 0.883 H* D (0.0-0.045) ng/mL Liver Function 06/22/24 06/23/24 06/23/24 Range/Units 22:55 06:06 14:41 Total Bilirubin 1.0 0.9 1.7 H D (0.3-1.2) mg/dL AST 255 H 173 H 193 H (0-34) U/L ALT 450 H 376 H 424 H (10-49) U/L Alkaline Phosphatase 213 H 183 H D 223 H D (46-116) U/L Albumin 4.0 3.6 4.2 D (3.5-5.0) gm/dL Urine 06/23/24 Range/Units 04:30 Urine Color Yellow (Lt Yel-Yel) Urine Clarity Clear (Clear/Hazy) Urine pH 6.0 (5.0-7.0) Ur Specific [place] 1.025 (1.001-1.035) Urine Protein 1+ A (Neg - Trace) Urine Glucose (UA) Negative (Negative) ABG Interpretation ABG results: 06/23/24 16:10 ABG pH 7.02 L* ABG pCO2 34 ABG pO2 53 L* ABG HCO3 9 L* ABG O2 Saturation 65 L ABG Base Excess -21 L Quality Measures Quality Measures none Medications Home Medications and Allergies Allergies Allergy/AdvReac Type Severity Reaction Status Date / Time No Known Allergies Allergy Verified 12/19/20 13:16 Visit Medications Acetaminophen (Acetaminophen 325 Mg Tablet) 650 mg PO Q6H PRN PRN Reason: Fever >100.4 or Pain 1-10 Stop: 07/23/24 04:50 Last Admin: 06/23/24 10:15 Dose: 650 mg Al Hydrox/Mg Hydrox/Simethicone (Mg Hyd/Al Hyd/Michelle (Maalox Reg) Susp 30 Ml Udc) 30 ml PO Q6H PRN PRN Reason: Indigestion Stop: 07/23/24 04:50 Last Admin: 06/23/24 10:16 Dose: 30 ml Dextrose (Dextrose 50%-Water Inj 50 Ml Syringe) 25 ml IV Q15MIN PRN PRN Reason: BG 50-70 responsive npo pt Stop: 07/23/24 08:39 Dextrose (Dextrose 50%-Water Inj 50 Ml Syringe) 50 ml IV Q15MIN PRN PRN Reason: BG <50 OR BG <70 & pt unresponsive Stop: 07/23/24 08:39 Glucagon (Glucagon Inj 1 Mg Vial) 1 mg IM Q15MIN PRN PRN Reason: BG <70, and no IV access Hydromorphone HCl (Hydromorphone Inj 2 Mg/Ml Vial) 1 mg IVP Q4HR PRN PRN Reason: PAIN Stop: 06/28/24 11:40 Last Admin: 06/23/24 13:24 Dose: 1 mg Piperacillin/Tazobactam/Dextrose (Zosyn) 50 mls @ 12.5 mls/hr IV Q8HR [facility] Stop: 06/30/24 21:59 Vancomycin HCl (Vancomycin/Water 1250 Mg Ivpb) 250 mls @ 120 mls/hr IV QDAY@1400 [facility] Stop: 06/30/24 16:14 Last Admin: 06/23/24 18:01 Dose: 120 mls/hr Insulin Human Lispro (Insulin Lispro (Admelog) 1 Unit/0.01 Ml Unit) [address] [facility]; Protocol Stop: 07/23/24 11:29 Ondansetron HCl (Ondansetron Inj 2 Mg/Ml Inj 2 Ml) 4 mg IV Q6H PRN; Protocol PRN Reason: NAUSEA OR VOMITING Stop: 07/23/24 04:50 Pantoprazole Sodium (Pantoprazole 40 Mg Tablet) [address] [facility] Stop: 07/23/24 08:59 Last Admin: 06/23/24 09:04 Dose: 40 mg Pharmacy Consult (Vancomycin Pharmacy To Dose 1 Each Each) 1 each IV QDAY PRN PRN Reason: PROTOCOL Stop: 07/24/24 08:59 Discontinued Medications Atorvastatin Calcium (Atorvastatin Calcium 20 Mg Tablet) [address] [facility] Stop: 07/23/24 20:59 Clopidogrel Bisulfate (Clopidogrel Bisulfate 75 Mg Tablet) [address] [facility] Stop: 07/23/24 08:59 Famotidine (Famotidine Inj 10 Mg/Ml Vial 2 Ml) 20 mg IVP X1 ONE Stop: 06/23/24 01:44 Last Admin: 06/23/24 01:54 Dose: 20 mg Glucagon (Glucagon Inj 1 Mg Vial) 1 mg IM Q15MIN PRN PRN Reason: BG <70, and no IV access Heparin Sodium (Porcine) (Heparin Sod Inj 5000 Unit/Ml Vial) 6,150 unit 80 unit/kg (6150 unit) IV X1 ONE; Protocol Stop: 06/23/24 03:06 Last Admin: 06/23/24 04:44 Dose: 6,150 unit Hydromorphone HCl (Hydromorphone Inj 2 Mg/Ml Vial) 1 mg IVP X1 ONE Stop: 06/23/24 15:58 Last Admin: 06/23/24 16:01 Dose: 1 mg Hydromorphone HCl (Hydromorphone Inj 2 Mg/Ml Vial) 2 mg IVP X1 ONE Stop: 06/23/24 16:59 Last Admin: 06/23/24 17:13 Dose: 2 mg Acetaminophen (Ofirmev Inj) 1,000 mg in 100 mls @ 250 mls/hr IV NOW ONE Stop: 06/23/24 02:07 Last Infusion: 06/23/24 02:17 Dose: Infused Heparin Sodium/Dextrose (Heparin In D5w Ivpb) 25,000 unit in 250 mls @ 13.684 mls/hr IV .[id number] [facility]; Protocol Stop: 07/07/24 04:59 Last Titration: 06/23/24 17:25 Dose: 0 units/kg/hr, 0 mls/hr Magnesium Sulfate (Magnesium Sulfate Ivpb) 2 gm in 50 mls @ 25 mls/hr IV X1 ONE Stop: 06/23/24 10:22 Last Admin: 06/23/24 09:04 Dose: 25 mls/hr Sodium Chloride (Ns) 1,000 mls @ 999 mls/hr IV .Q1H1M ONE Stop: 06/23/24 14:54 Last Admin: 06/23/24 15:45 Dose: 999 mls/hr Piperacillin/Tazobactam/Dextrose (Zosyn) 50 mls @ 100 mls/hr IV X1 ONE Stop: 06/23/24 14:29 Last Admin: 06/23/24 16:19 Dose: 100 mls/hr Sodium Chloride (Ns) 1,000 mls @ 999 mls/hr IV .Q1H1M ONE Stop: 06/23/24 14:58 Last Admin: 06/23/24 15:46 Dose: 999 mls/hr Sodium Bicarbonate 88.23 meq/ (Dextrose) 588.23 mls @ 100 mls/hr IV .Q5H53M [facility] Stop: 07/23/24 15:51 Last Admin: 06/23/24 17:23 Dose: Not Given Sodium Bicarbonate 150 meq/ (Dextrose) 1,150 mls @ 100 mls/hr IV .[id number] [facility] Stop: 07/23/24 15:59 Last Admin: 06/23/24 17:23 Dose: Not Given Insulin Human Lispro (Insulin Lispro (Admelog) 1 Unit/0.01 Ml Unit) [address] [facility]; Protocol Stop: 07/23/24 11:29 Last Admin: 06/23/24 12:00 Dose: Not Given Morphine Sulfate (Morphine Sulf Inj 10 Mg/Ml Vial) 2 mg IVP X1 ONE Stop: 06/23/24 11:35 Last Admin: 06/23/24 11:43 Dose: 2 mg Ondansetron HCl (Ondansetron Inj 2 Mg/Ml Inj 2 Ml) 4 mg IV X1 ONE; Protocol Stop: 06/23/24 01:45 Last Admin: 06/23/24 01:48 Dose: Not Given Ondansetron HCl (Ondansetron Inj 2 Mg/Ml Inj 2 Ml) 4 mg IV X1 ONE; Protocol Stop: 06/23/24 01:45 Last Admin: 06/23/24 01:54 Dose: 4 mg Protamine Sulfate (Protamine Sulfate 10 Mg/Ml 5ml Vial) 30 mg IV X1 ONE Stop: 06/23/24 17:38 Last Admin: 06/23/24 18:01 Dose: 30 mg Sodium Bicarbonate (Sodium Bicarb Inj 8.4% 1 Meq/Ml Vial 50 Ml) 50 meq IV X1 ONE Stop: 06/23/24 15:38 Last Admin: 06/23/24 15:51 Dose: 50 meq Sodium Bicarbonate (Sodium Bicarb Inj 8.4% 1 Meq/Ml Vial 50 Ml) 50 meq IV X1 ONE Stop: 06/23/24 16:06 Last Admin: 06/23/24 17:14 Dose: Not Given Assessment & Plan Plan Slick Odonnell is 58 yr male with PMH of polysubstance abuse with meth and marijuana, CAD, AR s/p stents, and HTN who presented to the ED on 06/22/2024 with episodes of periumbilical pain for 3 years, however episodes worsened in severity pass few days. Upgraded to ICU for mgmt of AHRF and worsening lactic acidosis. Neuro: no active problems CVS: #Chronic LV thrombus #Hx HFrEF, EF 20% #Elevated troponins Cardiology Dr. Anderson was consulted. Stated that pt is not having AR. EKG shows small ST elevation in V3/V4 -trops peaked at 1.269 -stop heparin drip and reverse with protamine for lap by Dr. Bloom -repeat coag pannel -echo pending Resp: #AHRF 2/2 respiratory acidosis ABGs showed metabolic acidosis ph 7.02, pCO2 34, bicarb 9. AG 27. Pt was started on BiPAP after desatting on 6L oxygen NC. -continue BiPap -repeat ABGs Renal: #HAGMA #Respiratory acidosis #GUCCI #Elevated LA High gap mostly due to LA with possible renal failure component. Produced 500cc since past 12 hrs--very miminal output. Placed tenorio cath. CO2 not compensating--elevated at 34. -monitor IOs -avoid nephrotoxic agents -daily CMP -repeat ABG -possible dialysis GI: #Transaminitis #Hyperbilirubinemia Most likey shock liver, no RUQ pain, no jaundice, no fever, CT a/p negative for CBD occlusion. Considering bowel ischemia due to POOP on physial exam. No gaurding or ridgity. Dr. Bloom was consulted. Will consider doing ex lap for causes. -NPO -stop heparin -proatmine -NG suction Endo: No active problems Heme: #Leukocytosis likely reactive -monitor ID: #Sepsis? Patient meets SIRS 3/4 with WBC 17, tachy, and tachypnic. Unkown source at this time. -blood cultures pending -sputum culture pending -start empiric abx vanc/zosyn Health maintenance: Dispo: ICU for AHRF, lactic acidosis GI: pantoprazole 50 DVT prophylaxis: hold heparin for surgery CODE STATUS: Full code The patient's management plan was discussed with my attending physician Dr. Schroeder and senior Dr. Russell. Carolyn Pemberton, PGY-1
[2024-06-23] MEDS: RINGERS LACTATED 1000 ML 500 ML 999 ML IV (19:40)
[2024-06-23] MEDS: ALBUMIN HUMAN 25% IVPB 25 GM/100 ML BTL IV (19:40)
--- NOTE | 2024-06-23 19:47 | XR_ITS ---
Examination: AP chest single view Technique one AP portable semiupright chest single view Exam thin time: December 21, 2024 195 hours Comparison November 15, 2022 INDICATION: Post central line placement FINDINGS: Right internal jugular central line tip right atrium No pneumothorax Mild enlargement cardiac contour with prominent vascular congestion Perihilar edema and/or pneumonia IMPRESSION: Right internal jugular central line tip right atrium No pneumothorax
[2024-06-23 19:52] LABS: Reflex Lactate? Y
[2024-06-23 20:05] LABS: Base Excess, Venous -24 (-3-3); O2 Saturation, Venous 45 % (96-97); PCO2, Venous 31 mmHg (36-56); PO2, Venous 39 mmHg (15-58); pH, Venous 6.97 (7.33-7.66)
[2024-06-23 20:08] LABS: Base Excess -26 (-3-3); HCO3 3 mEq/L (20-26); Inspired Oxygen, FIO2 30 %; O2 Saturation 98 % (91-98); PCO2 14 mmHg (32.0-48.0); PO2 146 mmHg (83-108)
[2024-06-23 20:09] LABS: Allen Test Performed/OK; Puncture Site Right Radial
[2024-06-23 20:10] LABS: pH, Arterial 7.01 (7.35-7.45)
[2024-06-23 20:18] LABS: Basophils # (Auto) 0.1 Thou/mm3 (0.0-0.2); Basophils % (Auto) 0 % (0-2.5); Eosinophils % (Auto) 0 % (0-10); Hematocrit 43.1 % (41.0-53.0); Hemoglobin 13.2 g/dL (13.5-16.0); Immature Granulocytes % (Auto) 1 % (0-0); Immature Granulocytes Auto 0.33 Thou/mm3 (0.00-0.00); Lymphocytes # (Auto) 0.9 Thou/mm3 (1.0-4.8); Lymphocytes % (Auto) 3 % (10-50); Mean Corpuscular HGB Conc 30.6 g/dl (31.0-37.0); Mean Corpuscular Hemoglobin 27.7 pg (25.0-35.0); Mean Corpuscular Volume 90 fL (80-100); Monocytes # (Auto) 1.7 Thou/mm3 (0.0-0.8); Monocytes % (Auto) 6 % (0-12); Neutrophils # (Auto) 26.8 Thou/mm3 (1.8-7.7); Neutrophils % (Auto) 90 % (37-80); Nucleated Red Blood Cell # 0.07 Thou/mm3 (0.00-0.00); Nucleated Red Blood Cell % 0 /100 WBC (0); Platelet Count 165 Thou/mm3 (140-440); RDW Standard Deviation 55.7 fL (35.1-43.9); Red Blood Count 4.77 Miln/mm3 (4.50-5.90); White Blood Count 29.7 Thou/mm3 (3.8-10.6)
[2024-06-23] MEDS: Norepinephrine/D5W 8mg/250ml 8 MG/250 ML BAG 7.127 MG IV (20:19)
--- NOTE | 2024-06-23 20:22 | PD.RESPROC ---
Procedures Procedure Date / Time 06/23/242021 Arterial Line Size (Gauge): 20 Central Line Placement Right IJ: Indication(s): shock and poor, or inadequate peripheral venous access Informed consent obtained: from patient Time out done, and the following verified: correct patient, side and site, procedure, patient position and implants and/or equipment Patient placed on monitor/pulse ox: Yes Hand Hygiene: alcohol-based hand rub Max Sterile Barrier Techniques used: cap, mask, sterile gown, sterile gloves and sterile full body drape Central line prep: Chlorhexidine scrub and sterile drapes applied Local anesthesia used: lidocaine 1% Amount of anesthesia used (mL): 5 Ultrasound used for placement: Yes Sterile Technique if Ultrasound used, including sterile gel: yes Central line lumen inserted: triple Post procedure: sutured in place, good blood return, all ports aspirated, flushed, capped and sterile dressing applied Post procedure x-ray: tip of catheter in good position and no pneumothorax seen Patient tolerated procedure: well and no complications EBL(ml): 5 Complications: none Procedure comment: Attending note: I was present for the procedure and assisted with montez aspects. CXR showed good position with no pneumo
[2024-06-23 20:24] LABS: INR 2.5 (0.9-1.3); Partial Thromboplastin Time 45.3 Seconds (22.0-36.0); Prothrombin Time 25.3 Seconds (9.0-12.2)
[2024-06-23] MEDS: Sodium Bicarb Inj 8.4% SYR 50 ML SYRINGE IV (20:24)
[2024-06-23] MEDS: DEXTROSE 50%-WATER INJ 50 ML SYRINGE IV (20:32)
[2024-06-23] MEDS: CALCIUM CHLORIDE 10% INJ 10 ML SYRG IV (20:35)
--- NOTE | 2024-06-23 20:54 | PD.RESPROC ---
Procedures Procedure Date / Time 06/23/242053 Arterial Line Size (Gauge): 20 Intubation Indication(s): acute Resp Failure and inability to protect airway Informed consent obtained: implied and procedure done urgently Time out done, and the following verified: correct patient, side and site, procedure, patient position and implants and/or equipment Sedative: none Laryngoscope: fiber optic video scope Assist device used: fiber optic device ET tube size: 7.5 ET tube uncuffed: No Tube secured depth (cm): 21 Tube secured location: other (gums) Tube placement confirmation: visualized tube passing through cords, equal breath sounds bilaterally, no breath sounds over epigastrium and confirmation by capnometry Patient tolerated procedure: well and no complications EBL(ml): 1 Intubation complications: none Additional comments: INDICATION: Cardiopulmonary arrest PROCEDURE CONSULTING DATABASE ADMINISTRATOR:Dr. Ruiz ATTENDING PHYSICIAN: Dr. Wall. CONSENT: The procedure was emergent, the patient was unable to provide consent, and a designee was not immediately available. PROCEDURE SUMMARY: A time out was performed. My hands were washed immediately prior to the procedure. I wore a surgical cap, mask with protective eyewear, gown and gloves throughout the procedure. The patient was placed on a customer care voice consultant including continuous pulse oximetry. Rapid Sequence Intubation was conducted. Using a fiberoptic laryngoscope and a size 7.5 cm endotracheal tube with stylet, the patient was intubated on the 2nd attempt. The stylet was removed and cuff balloon was inflated. Appropriate endotracheal tube position was confirmed by direct visualization of vocal cord passage, fogging of the tube, CO2 colormetric indicator and symmetric breath sounds. The tube was secured at 21cm at the Gums. Procedure done under the guidance of Dr. Duke Ruiz, Pgy1
[2024-06-23 21:05] LABS: Basophils # (Auto) 0.1 Thou/mm3 (0.0-0.2); Basophils % (Auto) 0 % (0-2.5); Eosinophils % (Auto) 0 % (0-10); Hematocrit 34.6 % (41.0-53.0); Immature Granulocytes % (Auto) 3 % (0-0); Lymphocytes # (Auto) 1.9 Thou/mm3 (1.0-4.8); Lymphocytes % (Auto) 8 % (10-50); Mean Corpuscular HGB Conc 28.9 g/dl (31.0-37.0); Mean Corpuscular Hemoglobin 27.5 pg (25.0-35.0); Mean Corpuscular Volume 95 fL (80-100); Monocytes # (Auto) 1.7 Thou/mm3 (0.0-0.8); Monocytes % (Auto) 7 % (0-12); Neutrophils # (Auto) 19.7 Thou/mm3 (1.8-7.7); Neutrophils % (Auto) 82 % (37-80); Nucleated Red Blood Cell # 0.25 Thou/mm3 (0.00-0.00); Nucleated Red Blood Cell % 1 /100 WBC (0); Platelet Count 81 Thou/mm3 (140-440); RDW Standard Deviation 58.3 fL (35.1-43.9); Red Blood Count 3.63 Miln/mm3 (4.50-5.90)
--- NOTE | 2024-06-23 21:15 | PD.DPN ---
Documentation for date of: 06/23/24 Pronouncement Note Date and Time of Date of : 06/23/24 Time of : 21:03 PCOD Preliminary cause of : Cardiopulmonary arrest Summary Additional details: Called by RN to pronounce Slick Odonnell. On exam, no heart sounds or breath sounds were noted after 1 minute of auscultation. Pupils were fixed and dilated without pupillary light reflex. Patient was pronounced on 06/23/2024. Attending Dr. Hutchison was notified. Next of kin was notified and condolences were offered. Additional Data Confirmation of : no pulse, no respirations, no heart sounds and pupils fixed and dilated Family: contacted Attending/PCP notified?: Yes Attending physician: Aileen Hutchison MD
--- NOTE | 2024-06-23 21:17 | PD.DDS ---
Documentation for date of: 06/23/24 Summary Date and Time Date of admission: 06/23/24 04:50 Date of : 06/23/24 Time of : 21:03 Summary Details: Called by RN to pronounce Slick Odonnell. On exam, no heart sounds or breath sounds were noted after 1 minute of auscultation. Pupils were fixed and dilated without pupillary light reflex. Patient was pronounced on 06/23/2024. Attending Dr. Hutchison was notified. Next of kin was notified and condolences were offered. Hospital Course: Patient was a 58-year-old male with history of CAD, RI s/p PCI, HTN, history of polysubstance abuse who initially presented to the ED with chronic periumbilical pain that worsened and ultimately patient was admitted for workup and evaluation of abdominal pain. Additionally patient was noted to have a left ventricle thrombus. Case was discussed with cardiology who did not recommend heparin drip. Following a rapid response, ICU was consulted for severe acidosis and elevation of lactic acid, therefore patient was upgraded. Patient was started on broad-spectrum antibiotics for possible underlying infectious source; blood cultures were sent. General surgery and anesthesia were consulted due to concern for mesenteric ischemia, however patient was deemed not stable for surgical intervention. Due to worsening shock, arterial line and right IJ central line were placed, and patient started on IV pressors. At 2039, CODE BLUE was initiated with 8 rounds of CPR/epi given. Ultimately patient was pronounced at 2102. #Undifferentiated shock #Chronic LV thrombus #HFrEF, EF 20% #NSTEMI, likely type II #Acute hypoxic respiratory failure #Anion gap metabolic acidosis #Lactic acidosis #GUCCI #Transaminitis, likely secondary to shock liver #Hyperbilirubinemia #Concern for sepsis versus septic shock Patient seen and care discussed with my attending Dr. Hutchison. Kirsten Mascorro MD PGY-3 Additional Data Confirmation of as documented by pronouncing clinician: no pulse, no respirations, no heart sounds and pupils fixed and dilated Family: contacted Attending/PCP notified?: Yes Attending physician: Aileen Hutchison Was code activated?: Yes Visit Providers Provider Primary care physician: Myke Duff PA-C Consults: 06/23/24 07:25 Consult to Cardiology Stat Comment: Left ventricle thrombus Consulting Provider: Jo Anderson 06/23/24 15:13 Referral Respiratory Therapy Routine Comment: 06/23/24 15:43 Consult to Construction Engineering Manager Stat Comment: Consulting Provider: Mima Schroeder 06/23/24 16:59 Consult to General Surgery Routine Comment: Consulting Provider: Vicenta Quiroz Diagnosis PCOD Cause of : Cardiopulmonary arrest Discharge Plan Plan Patient Disposition: Prescriptions/Referrals Referrals: Myke Duff PA-C [Primary Care Provider] - Patient/Caregiver Discharge Instructions Education Materials: Prediabetes, Diabetes and Heart Disease, Diabetes and Kidney Disease, Addiction: Getting Help, Understanding Methamphetamine ..., Diabetes Carbs Fats Protein, Can You Control Diabetes ..., Diabetes and High Blood Pressure Print Language: Burmese
[2024-06-23 21:39] LABS: Alanine Aminotransferase 1628 U/L (10-49); Albumin, Serum 2.7 gm/dL (3.5-5.0); Albumin/Globulin Ratio 1.6 (1.2-2.2); Alkaline Phosphatase 127 U/L (46-116); Anion Gap 27 (7-16); Aspartate Amino Transferase 1869 U/L (0-34); BUN/Creatinine Ratio 14 Ratio (12-20); Bilirubin,Total 1.2 mg/dL (0.3-1.2); Blood Urea Nitrogen 32 mg/dL (9-23); Calcium 9.8 mg/dL (8.3-10.6); Calcium (Corrected) 10.8 mg/dL (8.5-10.1); Chloride 100 mMol/L (98-107); Creatine Kinase 112 U/L (34-171); Creatinine (Component) 2.3 mg/dL (0.6-1.3); Estimated Creatinine Clearance 35.7 mL/min (>60); Globulin 1.7 gm/dL (2.3-3.5); Magnesium 2.8 mg/dL (1.6-2.6); Osmolality,Calculated 313 (275-295); Sodium 141 mMol/L (136-145); Total Protein 4.4 gm/dL (5.7-8.2); eGFR 32 See Note
[2024-06-23 21:43] LABS: Carbon Dioxide 13.8 mMol/L (20.0-31.0); Potassium 7.1 mMol/L (3.4-5.1)
[2024-06-23 21:44] LABS: Glucose 546 mg/dL (74-106); Phosphorous 12.1 mg/dL (2.4-5.1)
[2024-06-24 00:01] LABS: Reflex Lactate? Y
--- NOTE | 2024-06-24 01:22 | ESCONSULT_ITS ---
RE: LETTY ALSTON : 1965 DATE OF CONSULTATION: 06/23/2024 CONSULTING PHYSICIANS: Emergency Physician and also Dr. Schroeder REASON FOR CONSULTATION: Continued evaluation of troponin elevation, known history of ischemic cardiomyopathy, status post stent position. HISTORY OF PRESENT ILLNESS: The patient is a 58-year-old male with a past medical history of polysubstance abuse, methamphetamine abuse, and chronic coronary artery disease who had _, anterolateral extensive myocardial infarction in 01/2024. Subsequently, multiple hospitalizations in [facility] in February, March, and April including 06/07 with multiple episodes of various problems including vague chest pain, shortness of breath. The patient underwent stent placement of the left anterior descending artery, was found to have multivessel disease, circumflex artery with 99% stenosis, complex multiple lesions, and right coronary artery showed moderate to severe 80% stenosis, severe LV dysfunction ejection fraction only 20% to 25% with extensive anteroapical myocardial infarction. Left ventricular mural thrombus was detected more than 4 months ago and was supposed to be on anticoagulation, apparently noncompliant. The patient first time presented to this hospital with significant mid abdominal pain, but no chest pain. Initially, he was hemodynamically stable, but subsequently became very acidotic. Lactic acid kept going up to 17 and severe metabolic acidosis was ensued. The patient did have slight elevation of troponin at __. EKG showed evidence of recent old anteroseptal apical myocardial infarction with persistent ST-segment elevation, which is unchanged compared to previor EKG. I assessed the patient in the emergency room and also subsequently in intensive care unit. The patient deteriorated quite fast over the last several hours. There were multiple CTs performed; CT of the abdomen, pelvis, and chest. There was evidence of left ventricular mural thrombus. Cardiac echo showed ejection fraction 20%. Extensive LV mural thrombus was seen. The patient had a slight troponin elevation; however, the patient did not have any chest pain or any acute coronary syndrome. PAST MEDICAL HISTORY: Chronic methamphetamine abuse, myocardial infarction, stent placement in left anterior descending artery in 01/2024. Subsequent angiogram showed a stent in the LAD widely patent but severe double vessel CAD. Refused to have bypass graft surgery by cardiac surgeon because of high risk and complex PCI was also turned down by other interventionalist. The patient continues to be methamphetamine abuser. PHYSICAL EXAMINATION: In the emergency room was somewhat stable, but currently the patient is in intensive care unit and severely acidotic with severe metabolic acidosis. VITAL SIGNS: Blood pressure is 100/60, pulse rate is 100, on BiPAP. NECK: Supple. LUNGS: Decreased breath sounds. HEART: Heart sounds distant. ABDOMEN: Soft. No tenderness seen. EXTREMITIES: Mild edema of both feet. GENITOURINARY AND RECTAL: Not performed. NEUROLOGIC: The patient is alert, awake, not having any acute distress earlier but now is on BiPAP. Neurologic examination otherwise unremarkable. DIAGNOSTIC DATA: EKG showed _ recent anteroseptal myocardial infarction. LABORATORY DATA: Initial white count was already 13,000 but went up to 29,000, hemoglobin 14, down to 10, hematocrit 34. There was severe lactic acidosis. The lactic acid kept going up. Initially, it was around 13, but went up to 19 and 20. The blood gases showed severe metabolic acidosis, pH of 7.02 and pCO2 of 34 and subsequently went down to 14 and pO2 on BiPAP was 146. Chemistry panel showed acute kidney injury, BUN 50_, creatinine 2.3, and initial potassium 4.4, subsequently went to 7.1, CO2 was 10. His troponin level was slightly elevated at 1.2 subsequently 0.8. IMPRESSION/ASSESSMENT: 1. Severe sepsis with possibly source of possible gangrene of the small bowel with severe metabolic stenosis. 2. Ischemic cardiomyopathy with recent extensive anteroapical myocardial infarction, left ventricular mural thrombus. 3. Coronary artery disease, multivessel CAD status post stent placement in the left anterior descending artery, severe stenosis_ right coronary artery. 4. Methamphetamine abuse, chronic with cardiomyopathy. 5. Severe lactic acidosis secondary to sepsis and intraabdominal pathology, possibly ganglion of the bowel. RECOMMENDATIONS: The patient was seen by general surgeon, Dr. Quiroz, who felt the patient is also high risk for surgery. Not sure if there was an infection, but definitely there was no perforation clinically, but the patient had severe metabolic acid spiraling down, unlikely to survive the surgery. Hence, I spoke to anesthesia with Dr. Ramirez_ and also Dr. Quiroz that it may be futility in taking this patient to the operating room at this point, hence conservative medical management possibly appears to be appropriate at this time as the patient is not expected to survive. DT: 23:41:07 TT: 01:20:00 Ref: [id number] - TID: [id number] MTDD
== END 2024-06-23 21:03 | disposition expired | DRG 207 ==
LOC: SERX 06-23 03:32 → SERHOLD 06-23 05:46 → S3NX 06-23 09:42 → S2SX 06-23 16:40
PROVIDERS: Internal Medicine; Physician Assistant; Student in an Organized Health Care Education/Training Program; Admitting Provider Internal Medicine; Emergency Provider Emergency Medicine; PCP Physician Assistant; Visit Provider Internal Medicine
DX: I51.3 Intracardiac thrombosis, not elsewhere classified (principal); E87.4 Mixed disorder of acid-base balance; I11.0 Hypertensive heart disease with heart failure; I21.A1 Myocardial infarction type 2; I25.10 Atherosclerotic heart disease of native coronary artery without angina pectoris; I25.2 Old myocardial infarction; J96.01 Acute respiratory failure with hypoxia; I46.9 Cardiac arrest, cause unspecified; K72.00 Acute and subacute hepatic failure without coma; I50.22 Chronic systolic (congestive) heart failure; F15.10 Other stimulant abuse, uncomplicated; K80.20 Calculus of gallbladder without cholecystitis without obstruction; N17.9 Acute kidney failure, unspecified; R73.9 Hyperglycemia, unspecified; A41.9 Sepsis, unspecified organism; K55.9 Vascular disorder of intestine, unspecified; K42.9 Umbilical hernia without obstruction or gangrene; I25.5 Ischemic cardiomyopathy; R65.21 Severe sepsis with septic shock; F17.210 Nicotine dependence, cigarettes, uncomplicated; Z95.5 Presence of coronary angioplasty implant and graft; Z91.148 Patient's other noncompliance with medication regimen for other reason
CPT/HCPCS: 36415; 36600; 71045; 74174; 74177; 76705; 80048; 80053; 80061; 80074; 80307; 80320; 80329; 81001; 82550; 82803; 83036; 83605; 83690; 83735; 84100; 84443; 84484; 85025; 85610; 85730; 86703; 87040; 87086; 87502; 93005; 93306; 94660; 96365; 99285; A4649; J0131; J1643; J1644; J2270; J2405; J2543; J2598; J2720; J3372; J3475; J3490; J7030; J7120; P9047; Q9967; A9270; G0480